=== PATIENT | female | born 1935 | race Caucasian/White ===

== ENCOUNTER 2016-09-03 11:05 | Outpatient (CLI) | payer MEDICARE ==
[2016-09-03 11:29] LABS: BASOPHILS # (AUTO) 0.1 10^3/uL (0.0-0.1); EOSINOPHILS # (AUTO) 0.2 10^3/uL (0.0-0.7); EOSINOPHILS % (AUTO) 3.6 %; HCT - HEMATOCRIT 39.6 % (37.0-47.0); HGB - HEMOGLOBIN 13.2 g/dL (12.0-16.0); LYMPHOCYTES # (AUTO) 2.2 10^3/uL (1.5-3.5); LYMPHOCYTES % (AUTO) 33.4 %; MEAN CORPUSCULAR HEMOGLOBIN 29.1 pg (27.0-31.0); MEAN CORPUSCULAR HGB CONC 33.4 g/dL (32.0-36.0); MEAN CORPUSCULAR VOLUME 87.3 fL (81.0-99.0); MEAN PLATELET VOLUME 8.4 fL (7.9-10.8); MONOCYTES # (AUTO) 0.4 10^3/uL (0.0-1.0); MONOCYTES % (AUTO) 6.8 %; NEUTROPHILS # (AUTO) 3.6 10^3/uL (1.5-6.6); NEUTROPHILS % (AUTO) 55.2 %; RED BLOOD COUNT 4.53 10^6/uL (4.20-5.40); RED CELL DISTRIBUTION WIDTH 13.2 % (12.0-15.0); UNCORRECTED WHITE BLOOD COUNT 6.6 x10^3/uL; WHITE BLOOD COUNT 6.6 x10^3/uL (4.8-10.8)
[2016-09-03 11:41] LABS: ALBUMIN/GLOBULIN RATIO 1.7 (1.0-2.2); BILIRUBIN,TOTAL 0.5 mg/dL (0.2-1.0); CALCIUM 9.7 mg/dL (8.5-10.3); CREATININE 0.8 mg/dL (0.4-1.0); POTASSIUM 4.2 mmol/L (3.5-5.0); TOTAL PROTEIN 6.7 g/dL (6.7-8.2)
[2016-09-03 11:43] LABS: PT - PROTHROMBIN TIME 11.5 secs (9.9-12.6)
[2016-09-03 11:50] LABS: PARTIAL THROMBOPLASTIN TIME 26.5 secs (24.9-33.3)
== END 2016-09-03 11:06 | disposition home or self-care (01) ==
LOC: LAB 11:05
PROVIDERS: ATTEND Physician Assistant Medical
DX: E03.9 Hypothyroidism, unspecified (principal); M17.11 Unilateral primary osteoarthritis, right knee
CPT/HCPCS: 36415; 80053; 84443; 85025; 85610; 85730; 87640

== ENCOUNTER 2016-10-21 06:16 | Inpatient (IN) | payer MEDICARE ==
[2016-10-21] MEDS ORDERED: ceFAZolin 2 GM/50 ML 50 ML IV ONE (06:33)
[2016-10-21] MEDS ORDERED: LACTATED RINGERS 1,000 ML IV ONE (06:51)
[2016-10-21] MEDS ORDERED: TRANEXAMIC ACID 1,000 MG/10 ML VIAL IV ONE (08:10)
[2016-10-21] MEDS ORDERED: fentaNYL 100 MCG/2 ML VIAL IVP ONE (08:10)
[2016-10-21] MEDS ORDERED: ACETAMINOPHEN 1,000 MG/100 ML VIAL IV ONE (08:10)
[2016-10-21] MEDS ORDERED: ONDANSETRON 4 MG/2 ML VIAL IVP ONE (08:10)
[2016-10-21] MEDS ORDERED: DEXAMETHASONE 4 MG/ML VIAL IVP ONE (08:10)
[2016-10-21] MEDS ORDERED: MIDAZOLAM 2 MG/2 ML VIAL IVP ONE (08:10)
[2016-10-21] MEDS ORDERED: PROPOFOL 200 MG/20 ML VIAL IVP ONE (08:10)
[2016-10-21] MEDS ORDERED: KETOROLAC 30 MG/ML VIAL IVP ONE (08:10)
[2016-10-21] MEDS ORDERED: KETOROLAC 15 MG/ML VIAL IVP ONE (08:24)
[2016-10-21] MEDS ORDERED: MORPHINE PF 5 MG/10 ML AMP SUBQ ONE (08:24)
[2016-10-21] MEDS ORDERED: ROPIVACAINE 0.5% PF 20 ML AMPULE SUBQ ONE (08:24)
[2016-10-21] MEDS ORDERED: EPINEPHrine 1 MG/ML AMP IVP ONE (08:24)
[2016-10-21] MEDS ORDERED: BUPIVACAINE 0.5% PF 30 ML VIAL SUBQ ONE (08:24)
--- NOTE | 2016-10-21 09:31 | OPERATIVE REPORT ---
Operative Report - General Admit Date: 10/21/16 Procedure Date: 10/21/16 Planned Procedure: left TKA Pre-Op Diagnosis: Left knee DJD Procedure Performed: Left TKA Post Op Diagnosis: same - Procedure Note Primary Surgeon: Jose L Anesthesia Provider: Sebastian Anesthesia Technique: Spinal Estimated Blood Loss (mL): 25 Drain/Tube Type: Hemovac
[2016-10-21] MEDS: ONDANSETRON 4 MG/2 ML VIAL IVP PRN ×2 (10:58→16:48)
[2016-10-21] MEDS: SODIUM CHLORIDE FLUSH 0.9% 10 ML SYRINGE IVP SCH ×2 (13:27→21:20)
--- NOTE | 2016-10-21 14:16 | OPERATIVE REPORT ---
DATE OF SURGERY: 10/21/2016 00:00:00 PREOPERATIVE DIAGNOSIS: Left knee osteoarthritis. POSTOPERATIVE DIAGNOSIS: Left knee osteoarthritis. NAME OF PROCEDURE: Left total knee replacement arthroplasty. SURGEON: Florencia Domingo MD ANESTHESIA: Spinal by Dr. Cortes. INDICATIONS FOR SURGERY: The patient is a 81-year-old female with progressive, severe osteoarthritis of her left knee who has failed nonoperative treatment and presents for elective total knee arthropla sty. FINDINGS AT SURGERY: The patient's knee had inflammatory effusion. She had osteophytes about the femu r and relatively soft bone. There was degeneration of meniscal tissues and [id number] articulation in the patellofemoral and in the medial compartment spaces. DESCRIPTION OF OPERATIVE PROCEDURE: The patient was taken to the operating room and given a spinal an esthetic, after which she was positioned supine, and a tourniquet was placed high on her left thigh, and her knee and leg were sterilely prepped and draped in standard fashion. Surgical timeout was held , after which the tourniquet was inflated to 300 mmHg. Surgery proceeded with a curved medial incisio n through skin and subcutaneous tissue, exposing the medial retinaculum, which was incised in line wi th the incision. The effusion in the knee was evacuated, and the knee was able to be flexed with the patella everted to the side. The osteophytes were removed with a rongeur, the ACL excised and a drill hole made in the distal femur for insertion of the intramedullary scott and the distal femoral cutting block. The cutting block was utilized to make the initial distal femoral cut, after which sizing was performed, and the femur size was selected at a size 7. The 4-in-1 cutting block was applied, and th e cuts made. The tibia was then exposed, and this was facilitated by complete excision of menisci, me dial and lateral, and by posterior release of the posterior osteophytes. With retractors positioned, the tibia was subluxated anteriorly, and the external alignment tower was assembled and placed on the tibia for placement of a cutting block. A standard cut was made and the femoral piece removed and th e surface templated for a size D natural tibia Persona baseplate with a stem. After preparation of th at surface, a trial reduction was performed, and the proper poly seemed to be most appropriate with a tibial insert of 12 mm, and the patella was prepared by eversion of the patella, initial measuring a nd then cutting down of the patella to apply a 29 mm diameter 8 mm thick medialized patella. All comp onents were removed, and the surfaces were flushed and irrigated thoroughly, and sequential cementing was performed, cementing first the natural tibia, cemented 5 degree stem, size D left tibia baseplat e and then the size 7 left narrow cruciate retaining femur followed by the cementing of the all poly patella and ultimately also insertion of the polyethylene, which was 12 mm in height, medial congruen t, for a size femur 6-7. This yielded a stable knee with good range of motion, tight in both flexion and extension with normal patellar tracking. The knee was flushed thoroughly. Cement had hardened. Ex cess cement removed. A drain was placed superolateral. Closure was with FiberWire in the capsule, fol lowed by 0 Vicryl and 2-0 Vicryl subcuticular and 3-0 Monocryl in the skin. Sterile dressings were ap plied. The patient was placed in a supine position on the hospital bed and taken to the recovery room in stable condition. ESTIMATED BLOOD LOSS: Minimal. COMPLICATIONS: None. SPONGE AND NEEDLE COUNTS: Correct. TOURNIQUET TIME: Was approximately 70 minutes at 300 mmHg. JOB #: [id number] EXT JOB #:[id number]
[2016-10-21] MEDS: ceFAZolin 2 GM/50 ML 50 ML IV SCH ×2 (14:21→21:20)
[2016-10-21] MEDS: SODIUM CHLORIDE FLUSH 0.9% 10 ML SYRINGE IVP PRN ×2 (16:48→19:07)
[2016-10-21] MEDS ORDERED: PROCHLORPERAZINE 10 MG/2 ML VIAL IVP PRN (17:30)
--- NOTE | 2016-10-21 18:23 | XRAY Report ---
TWO-VIEW LEFT KNEE: 10/21/2016 CLINICAL INDICATION: Postop. FINDINGS: Frontal and lateral views of the left knee demonstrate a total knee replacement in place. Subcutaneous gas is seen. Suprapatellar drain is noted. There is no evidence of acute fracture or hardware complication. IMPRESSION: EXPECTED POSTOPERATIVE APPEARANCE OF LEFT KNEE REPLACEMENT. JOB #: [id number] EXT JOB #:[id number]
[2016-10-21] MEDS: SODIUM CHLORIDE 0.45% 1,000 ML IV SCH (21:20)
[2016-10-22] MEDS: SODIUM CHLORIDE 0.45% 1,000 ML IV SCH ×2 (01:21→16:41)
[2016-10-22] MEDS: SODIUM CHLORIDE FLUSH 0.9% 10 ML SYRINGE IVP SCH ×3 (05:07→20:29)
[2016-10-22 05:44] LABS: HCT - HEMATOCRIT 33.6 % (37.0-47.0); HGB - HEMOGLOBIN 11.4 g/dL (12.0-16.0)
[2016-10-22 05:45] LABS: CALCIUM 8.1 mg/dL (8.5-10.3); CREATININE 0.7 mg/dL (0.4-1.0); POTASSIUM 4.1 mmol/L (3.5-5.0)
[2016-10-22] MEDS: oxyCOD/ACETAMIN 5 MG/325 MG TABLET PO PRN ×2 (06:54→14:21)
--- NOTE | 2016-10-22 07:42 | PROVIDER PROGRESS NOTE ---
Subjective - General Admit Date: 10/21/16 Procedure Date: 10/21/16 Post Op Days: 1 Procedure Performed: Left Total Knee Arthroplasty - Review of Systems Wound/Incisions: positive: Dressing dry and intact Objective - Patient Data Reviewed Vital Signs: Yes Vital Signs: Vital Signs x48h Temp Pulse Resp BP Pulse Ox 10/22/16 07:38 37.1 C 68 16 106/60 97 10/22/16 04:51 36.7 C 67 16 110/50 L 96 Weight: Weight 10/20/16 10/21/16 10/22/16 23:59 23:59 23:59 Weight (kg) 66 kg Intake & Output: Intake and Output Totals x24h 10/20/16 10/21/16 10/22/16 23:59 23:59 23:59 Intake Total 2214 785 Output Total 985 440 Balance 1229 345 - Lab Results Lab Results: 10/22/16 05:23 10/22/16 05:23 Other Lab Results: Lab Results x24hrs 10/22/16 10/22/16 10/21/16 Range/Units 05:23 05:23 07:00 Hgb 11.4 L (12.0-16.0) g/dL Hct 33.6 L (37.0-47.0) % Sodium 133 L (135-145) mmol/L Potassium 4.1 (3.5-5.0) mmol/L Chloride 103 (101-111) mmol/L Carbon Dioxide 25 (21-32) mmol/L Anion Gap 5.0 L (6-13) BUN 19 (6-20) mg/dL Creatinine 0.7 (0.4-1.0) mg/dL Estimated GFR (MDRD) 81 L (>89) Glucose 146 H (70-100) mg/dL Calcium 8.1 L (8.5-10.3) mg/dL Blood Type O NEGATIVE Antibody Screen NEGATIVE - Imaging Results Radiology Imaging: positive: EMP read indepedently - Current Medications Current Medications: Current Medications Generic Name Dose Route Start Last Admin Trade Name Freq PRN Reason Stop Dose Admin Sodium Chloride 1,000 mls @ 100 mls/hr 10/21/16 10:00 10/22/16 01:21 Normal Saline 0.45% IV 100 mls/hr .Q10H ANTOINE Administration Ondansetron HCl 4 mg 10/21/16 09:31 10/21/16 16:48 Zofran Inj IVP 4 mg Q6HR PRN Administration Nausea / Vomiting Oxycodone/Acetaminophen 1 tab 10/21/16 09:31 10/22/16 06:54 Percocet 5 Mg/325 Mg PO 1 tab Q4HR PRN Administration PAIN Prochlorperazine Edisylate 10 mg 10/21/16 17:30 10/21/16 19:07 Compazine Inj IVP 10 mg Q6H PRN Administration Nausea / Vomiting Sodium Chloride 10 ml 10/21/16 09:31 10/21/16 19:07 Normal Saline Flush 0.9% IVP 10 ml PRN PRN Administration NEEDED PER PROVIDER ORDERS Sodium Chloride 10 ml 10/21/16 14:00 10/22/16 05:07 Normal Saline Flush 0.9% IVP Not Given Q8HR ANTOINE Impression/Plan - Problem List Problem List: POD #1
[2016-10-22] MEDS: OXYBUTYNIN 5MG TABLET PO SCH ×2 (08:06→20:28)
[2016-10-22] MEDS: LEVOTHYROXINE 125 MCG TABLET PO SCH (08:06)
[2016-10-22] MEDS: HYDROmorphone 1 MG/ML SYRINGE IVP PRN ×2 (08:06→11:27)
[2016-10-22] MEDS: ACETAMINOPHEN 325 MG TABLET PO PRN ×3 (16:36→23:48)
[2016-10-23] MEDS: SODIUM CHLORIDE 0.45% 1,000 ML IV SCH ×3 (02:15→20:08)
[2016-10-23] MEDS: SODIUM CHLORIDE FLUSH 0.9% 10 ML SYRINGE IVP SCH ×3 (06:31→20:06)
--- NOTE | 2016-10-23 07:49 | PROVIDER PROGRESS NOTE ---
Subjective - General Admit Date: 10/21/16 Procedure Date: 10/21/16 Post Op Days: 2 Procedure Performed: Left Total Knee Arthroplasty - Review of Systems Wound/Incisions: positive: Dressing dry and intact General: positive: Fatigue, Appetite Musculoskeletal: positive: Joint pain Objective - Patient Data Reviewed Vital Signs: Yes Vital Signs: Vital Signs x48h Temp Pulse Resp BP Pulse Ox 10/23/16 07:43 36.9 C 66 16 150/55 H 94 10/23/16 05:35 36.8 C 65 17 162/61 H 94 10/23/16 01:26 37.1 C 74 16 134/56 H 95 Weight: Weight 10/21/16 10/22/16 10/23/16 23:59 23:59 23:59 Weight (kg) 66 kg Intake & Output: Intake and Output Totals x24h 10/21/16 10/22/16 10/23/16 23:59 23:59 23:59 Intake Total 2214 2871 847 Output Total 985 690 500 Balance 1229 2181 347 - Lab Results Lab Results: 10/22/16 05:23 10/22/16 05:23 - Current Medications Current Medications: Current Medications Generic Name Dose Route Start Last Admin Trade Name Freq PRN Reason Stop Dose Admin Acetaminophen 650 - 975 mg 10/21/16 09:31 10/22/16 23:48 Tylenol PO 975 mg Q4HR PRN Administration PAIN Hydromorphone HCl 1 mg 10/21/16 09:31 10/22/16 11:27 Dilaudid Inj IVP 1 mg Q2HR PRN Administration Breakthrough Pain Sodium Chloride 1,000 mls @ 100 mls/hr 10/21/16 10:00 10/23/16 02:15 Normal Saline 0.45% IV 100 mls/hr .Q10H ANTOINE Administration Levothyroxine Sodium 125 mcg 10/22/16 09:00 10/22/16 08:06 Synthroid PO 125 mcg DAILY ANTOINE Administration Ondansetron HCl 4 mg 10/21/16 09:31 10/21/16 16:48 Zofran Inj IVP 4 mg Q6HR PRN Administration Nausea / Vomiting Oxybutynin Chloride 5 mg 10/22/16 09:00 10/22/16 20:28 Ditropan PO 5 mg BID ANTOINE Administration Oxycodone/Acetaminophen 1 tab 10/21/16 09:31 10/22/16 14:21 Percocet 5 Mg/325 Mg PO 1 tab Q4HR PRN Administration PAIN Prochlorperazine Edisylate 10 mg 10/21/16 17:30 10/21/16 19:07 Compazine Inj IVP 10 mg Q6H PRN Administration Nausea / Vomiting Sodium Chloride 10 ml 10/21/16 09:31 10/21/16 19:07 Normal Saline Flush 0.9% IVP 10 ml PRN PRN Administration NEEDED PER PROVIDER ORDERS Sodium Chloride 10 ml 10/21/16 14:00 10/23/16 06:31 Normal Saline Flush 0.9% IVP Not Given Q8HR ANTOINE - Physical Exam Wound/Incisions: positive: Healing well, Dressing dry and intact General Appearance: positive: No acute distress Extremities: positive: Joint swelling Neurologic/Psychiatric: positive: Motor nml, Sensation nml, Mood/affect nml Impression/Plan - Problem List Problem List: POD #2 pain is as expected. Pt will continue with PT.
[2016-10-23] MEDS: POLYETHYLENE GLYCOL 3350 17 GM PACKET PO SCH (08:28)
[2016-10-23] MEDS: ACETAMINOPHEN 325 MG TABLET PO PRN ×2 (08:29→18:30)
[2016-10-23] MEDS: OXYBUTYNIN 5MG TABLET PO SCH ×2 (08:31→20:06)
[2016-10-23] MEDS: ENOXAPARIN 40 MG/0.4 ML SYRINGE SUBQ SCH ×2 (08:31→09:58)
[2016-10-23] MEDS: LEVOTHYROXINE 125 MCG TABLET PO SCH (08:31)
[2016-10-23] MEDS ORDERED: DOCUSATE SODIUM 250 MG CAPSULE PO SCH (17:00)
[2016-10-23] MEDS ORDERED: SENNA 8.6 MG TABLET PO SCH (17:00)
[2016-10-24] MEDS: ACETAMINOPHEN 325 MG TABLET PO PRN (03:50)
[2016-10-24] MEDS: SODIUM CHLORIDE FLUSH 0.9% 10 ML SYRINGE IVP SCH (05:26)
[2016-10-24 05:53] LABS: HCT - HEMATOCRIT 32.7 % (37.0-47.0); MEAN CORPUSCULAR HEMOGLOBIN 29.1 pg (27.0-31.0); MEAN CORPUSCULAR HGB CONC 33.7 g/dL (32.0-36.0); MEAN CORPUSCULAR VOLUME 86.4 fL (81.0-99.0); MEAN PLATELET VOLUME 9.1 fL (7.9-10.8); RED BLOOD COUNT 3.79 10^6/uL (4.20-5.40); RED CELL DISTRIBUTION WIDTH 12.9 % (12.0-15.0); WHITE BLOOD COUNT 8.1 x10^3/uL (4.8-10.8)
--- NOTE | 2016-10-24 06:39 | Discharge Plan ---
Discharge Plan Disposition: Home, Self Care Condition: Good Prescriptions: oxyCODONE/ACET 5/325 [Percocet 5 mg/325 mg] 1 tab PO Q4HR PRN #20 tablet PRN Reason: Pain Acetaminophen [Tylenol] 650 - 975 mg PO Q4HR PRN #100 tablet PRN Reason: Pain Enoxaparin [Lovenox] 40 mg SUBQ DAILY #10 syringe Senna [Senokot] 8.6 - 17.2 mg PO ONCE #14 tablet Diet: Regular Activity Restrictions: Wt Bearing as Tolerated Shower Restrictions: Yes (covered knee wound) Driving Restrictions: Yes (no driving) Assistance Devices: Walker Weight Bearing: as tolerated with walker Follow-Up Care: Outpatient Rehab - PT No Smoking: If you smoke, Please STOP! Call for help. Follow-up with: Sahra Li PA-C [Primary Care Provider] - Florencia Domingo MD [Provider Admit Priv/Credential] -
--- NOTE | 2016-10-24 06:42 | PROVIDER PROGRESS NOTE ---
Subjective - General Admit Date: 10/21/16 Procedure Date: 10/21/16 Post Op Days: 3 Procedure Performed: Left Total Knee Arthroplasty - Review of Systems Wound/Incisions: positive: Healing well, Dressing dry and intact Musculoskeletal: positive: Joint pain Objective - Patient Data Reviewed Vital Signs: Yes Vital Signs: Vital Signs x48h Temp Pulse Resp BP Pulse Ox 10/24/16 05:29 36.7 C 72 18 132/54 H 95 10/23/16 23:35 37.0 C 67 16 138/64 H 95 Intake & Output: Intake and Output Totals x24h 10/22/16 10/23/16 10/24/16 23:59 23:59 23:59 Intake Total 2871 2238 780 Output Total 690 1650 200 Balance 2181 588 580 - Lab Results Lab Results: 10/24/16 05:24 10/22/16 05:23 Other Lab Results: Lab Results x24hrs 10/24/16 Range/Units 05:24 WBC 8.1 (4.8-10.8) x10^3/uL RBC 3.79 L (4.20-5.40) 10^6/uL Hgb 11.0 L (12.0-16.0) g/dL Hct 32.7 L (37.0-47.0) % MCV 86.4 (81.0-99.0) fL MCH 29.1 (27.0-31.0) pg MCHC 33.7 (32.0-36.0) g/dL RDW 12.9 (12.0-15.0) % Plt Count 178 (130-450) 10^3/uL MPV 9.1 (7.9-10.8) fL - Current Medications Current Medications: Current Medications Generic Name Dose Route Start Last Admin Trade Name Freq PRN Reason Stop Dose Admin Acetaminophen 650 - 975 mg 10/21/16 09:31 10/24/16 03:50 Tylenol PO 650 mg Q4HR PRN Administration PAIN Enoxaparin Sodium 40 mg 10/23/16 08:00 10/23/16 09:58 Lovenox SUBQ 40 mg DAILY ANTOINE Administration Hydromorphone HCl 1 mg 10/21/16 09:31 10/22/16 11:27 Dilaudid Inj IVP 1 mg Q2HR PRN Administration Breakthrough Pain Sodium Chloride 1,000 mls @ 100 mls/hr 10/21/16 10:00 10/23/16 20:08 Normal Saline 0.45% IV Not Given .Q10H ANTOINE Levothyroxine Sodium 125 mcg 10/22/16 09:00 10/23/16 08:31 Synthroid PO 125 mcg DAILY ANTOINE Administration Ondansetron HCl 4 mg 10/21/16 09:31 10/21/16 16:48 Zofran Inj IVP 4 mg Q6HR PRN Administration Nausea / Vomiting Oxybutynin Chloride 5 mg 10/22/16 09:00 10/23/16 20:06 Ditropan PO 5 mg BID ANTOINE Administration Oxycodone/Acetaminophen 1 tab 10/21/16 09:31 10/22/16 14:21 Percocet 5 Mg/325 Mg PO 1 tab Q4HR PRN Administration PAIN Polyethylene Glycol 17 gm 10/23/16 09:00 10/23/16 08:28 Miralax PO 17 gm DAILY ANTOINE Administration Prochlorperazine Edisylate 10 mg 10/21/16 17:30 10/21/16 19:07 Compazine Inj IVP 10 mg Q6H PRN Administration Nausea / Vomiting Sodium Chloride 10 ml 10/21/16 09:31 10/21/16 19:07 Normal Saline Flush 0.9% IVP 10 ml PRN PRN Administration NEEDED PER PROVIDER ORDERS Sodium Chloride 10 ml 10/21/16 14:00 10/24/16 05:26 Normal Saline Flush 0.9% IVP 10 ml Q8HR ANTOINE Administration - Physical Exam Wound/Incisions: positive: Healing well Extremities: positive: Joint swelling Neurologic/Psychiatric: positive: Motor nml, Sensation nml, Mood/affect nml Impression/Plan - Problem List Problem List: POD #3 Pt is doing well with pain control (Tylenol) and therapy. plan to d/c to home with f/u in office next week. Discussed wound care with new dressing applied and to be left alone.
[2016-10-24 08:43] VITALS: BP 131/59
[2016-10-24] MEDS: OXYBUTYNIN 5MG TABLET PO SCH (08:56)
[2016-10-24] MEDS: ENOXAPARIN 40 MG/0.4 ML SYRINGE SUBQ SCH (08:57)
[2016-10-24] MEDS: LEVOTHYROXINE 125 MCG TABLET PO SCH (08:57)
[2016-10-24] MEDS: POLYETHYLENE GLYCOL 3350 17 GM PACKET PO SCH (08:57)
[2016-10-24] MEDS ORDERED: DOCUSATE SODIUM 250 MG CAPSULE PO SCH (09:00)
[2016-10-24] MEDS ORDERED: SENNA 8.6 MG TABLET PO SCH (09:00)
--- NOTE | 2016-10-30 13:04 | DISCHARGE SUMMARY ---
DATE OF ADMISSION: 10/21/2016 DATE OF DISCHARGE: 10/24/2016 ADMISSION DIAGNOSIS: Left knee degenerative arthritis. OPERATIVE PROCEDURE: Was 10/21/2016, a left total knee replacement arthroplasty. REASON FOR ADMISSION: The patient is a 81-year-old female with end-stage osteoarthritis of her left k nee, who presents for total knee arthroplasty. The patient has failed nonoperative treatment. The alpesh coffman's prior medical history is documented in her admit note. HOSPITAL COURSE: The patient was admitted and underwent surgery on 10/21/2016, which was well tolerat ed. In the postoperative period, she was placed on the med/surg floor receiving IV antibiotics and pa in medication, as well as early physical therapy. The patient progressed well over the following days and at the time of discharge was able to be discharged to home with self-care and return visit in my office within 1 week. DISCHARGE MEDICATIONS To be 1. Senna. 2. Lovenox. 3. Oxycodone. She had a silver containing dressing that was to remain in place on the anterior aspect of her knee. She had been instructed in range of motion exercises for the knee. JOB #: [id number] EXT JOB #:[id number]
== END 2016-10-24 11:03 | disposition home or self-care (01) | DRG 470 ==
LOC: MS2 06:16
PROVIDERS: ADMIT Orthopaedic Surgery; ATTEND Orthopaedic Surgery
PROC: 0SRD0J9 Replacement of Left Knee Joint with Synthetic Substitute, Cemented, Open Approach (ICD-10-PCS; principal; 2016-10-21 07:30)
DX: M17.12 Unilateral primary osteoarthritis, left knee (principal); K21.9 Gastro-esophageal reflux disease without esophagitis; E78.5 Hyperlipidemia, unspecified; E03.9 Hypothyroidism, unspecified; Z87.440 Personal history of urinary (tract) infections
CPT/HCPCS: 36415; 80048; 85014; 85018; 86850; 86900; 86901

== ENCOUNTER 2016-12-08 09:46 | Outpatient (CLI) | payer MEDICARE ==
--- NOTE | 2016-12-08 11:31 | Ultrasound Report ---
PELVIC ULTRASOUND: 12/08/2016 CLINICAL INDICATION: Followup right ovarian cyst. TECHNIQUE: Transabdominal pelvic ultrasound performed for global evaluation. Transvaginal pelvic ult rasound performed for detailed evaluation. Real-time scanning performed and static images obtained. COMPARISON: 10/27/2013 FINDINGS: The right ovary measures 2.7 x 2.5 x 2.4 cm, and again contains a simple cyst, measuring 2 .1 x 2.1 x 1.9 cm (previously 2.2 x 1.9 x 1.9 cm). The left ovary was not confidently identified on transabdominal or transvaginal imaging, but no left adnexal lesion is seen. The uterus is surgically absent. No free fluid is present. IMPRESSION: STABLE SIMPLE RIGHT OVARIAN CYST. JOB #: [id number] EXT JOB #:[id number]
== END 2016-12-08 09:47 | disposition home or self-care (01) ==
LOC: DI 09:46
PROVIDERS: ATTEND Physician Assistant Medical
DX: N83.291 Other ovarian cyst, right side (principal)
CPT/HCPCS: 76830; 76856

== ENCOUNTER 2017-12-10 14:50 | Outpatient (CLI) | payer MEDICARE ==
--- NOTE | 2017-12-11 15:16 | XRAY Report ---
Reason: COCCYDYNIA FROM FALL Procedure Date: 12/10/2017 Accession Number: [id number] / [id number] Procedure: XR - Sacrum/Coccyx CPT Code: FULL RESULT: EXAM: SACRUM AND COCCYX RADIOGRAPHY EXAM DATE: 12/10/2017 03:15 PM HISTORY: COMMENTS: Fall 2-3 weeks ago, sacral pain. : No PRIORS: None. COMPARISON: NONE TECHNIQUE: 3 views FINDINGS: There is some mild cortical irregularity at the S5 level which could potentially be a subacute fracture. No gabi displacement noted. Unremarkable coccyx. Sacral alae are grossly intact. 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 There is also mild to moderate bilateral SI joint degenerative arthritis. IMPRESSION: Question of a nondisplaced fracture at the S5 segment. Degenerative changes as noted. RADIA
== END 2017-12-10 14:51 | disposition home or self-care (01) ==
LOC: DI 14:50
PROVIDERS: ATTEND Physician Assistant Medical
DX: M53.3 Sacrococcygeal disorders, not elsewhere classified (principal); M47.818 Spondylosis without myelopathy or radiculopathy, sacral and sacrococcygeal region
CPT/HCPCS: 72220

== ENCOUNTER 2017-12-11 09:47 | Outpatient (CLI) | payer MEDICARE ==
[2017-12-11 17:37] LABS: BASOPHILS # (AUTO) 0.1 10^3/uL (0.0-0.1); BASOPHILS % (AUTO) 0.9 %; EOSINOPHILS # (AUTO) 0.2 10^3/uL (0.0-0.7); EOSINOPHILS % (AUTO) 3.6 %; HGB - HEMOGLOBIN 13.2 g/dL (12.0-16.0); LYMPHOCYTES % (AUTO) 35.3 %; MEAN CORPUSCULAR HEMOGLOBIN 28.8 pg (27.0-31.0); MEAN CORPUSCULAR HGB CONC 33.1 g/dL (32.0-36.0); MEAN CORPUSCULAR VOLUME 86.9 fL (81.0-99.0); MEAN PLATELET VOLUME 8.9 fL (7.9-10.8); MONOCYTES # (AUTO) 0.3 10^3/uL (0.0-1.0); MONOCYTES % (AUTO) 6.1 %; NEUTROPHILS % (AUTO) 54.1 %; PLT - PLATELET COUNT 223 10^3/uL (130-450); RED BLOOD COUNT 4.57 10^6/uL (4.20-5.40); RED CELL DISTRIBUTION WIDTH 13.8 % (12.0-15.0); WHITE BLOOD COUNT 5.5 x10^3/uL (4.8-10.8)
[2017-12-11 18:09] LABS: ALBUMIN 3.9 g/dL (3.2-5.5); ALBUMIN/GLOBULIN RATIO 1.8 (1.0-2.2); ALKALINE PHOSPHATASE 70 IU/L (42-121); ALT ALANINE AMINOTRANSFERASE 17 IU/L (10-60); AST ASPARTATE AMINOTRANSFERASE 30 IU/L (10-42); BILIRUBIN,TOTAL 0.7 mg/dL (0.2-1.0); BUN - BLOOD UREA NITROGEN 16 mg/dL (6-20); CALCIUM 9.1 mg/dL (8.5-10.3); CARBON DIOXIDE - CO2 27 mmol/L (21-32); CHLORIDE 105 mmol/L (101-111); CHOL/HDL RATIO 4.1 (<4.4); CHOLESTEROL 219 mg/dL; CREATININE 0.7 mg/dL (0.4-1.0); GFR - MDRD 81 (>89); GLUCOSE 96 mg/dL (70-100); HDL CHOLESTEROL 53 mg/dL; LDL CHOLESTEROL,CALCULATED 145 mg/dL; LDL/HDL RATIO 2.7 (<4.4); SODIUM 139 mmol/L (135-145); TOTAL PROTEIN 6.1 g/dL (6.7-8.2); VLDL CHOLESTEROL 21 mg/dL
[2017-12-11 18:11] LABS: THYROID STIMULATING HORMONE 1.85 uIU/mL (0.34-5.60)
== END 2017-12-11 09:48 | disposition home or self-care (01) ==
LOC: LAB.F 09:47
PROVIDERS: ATTEND Physician Assistant Medical
DX: Z79.899 Other long term (current) drug therapy (principal); E78.2 Mixed hyperlipidemia; M17.0 Bilateral primary osteoarthritis of knee; E03.9 Hypothyroidism, unspecified; R41.81 Age-related cognitive decline
CPT/HCPCS: 36415; 80053; 80061; 82607; 83721; 84443; 85025

== ENCOUNTER 2019-09-08 10:16 | Outpatient (CLI) | payer MEDICARE ==
[2019-09-08 15:30] LABS: CALCIUM 9.4 mg/dL (8.5-10.3); CREATININE 0.8 mg/dL (0.4-1.0)
[2019-09-08 16:54] LABS: FREE T4 (FREE THYROXINE) 1.11 ng/dL (0.58-1.64)
== END 2019-09-08 10:17 | disposition home or self-care (01) ==
LOC: LAB.S 10:16
PROVIDERS: ATTEND Internal Medicine
DX: E03.9 Hypothyroidism, unspecified (principal)
CPT/HCPCS: 36415; 80048; 84439; 84443

== ENCOUNTER 2019-10-26 11:00 | Outpatient (CLI) | payer MEDICARE | END 2019-10-26 11:01 | disposition home or self-care (01) | LOC: LAB.S 11:00 | PROVIDERS: ATTEND Internal Medicine | DX: E03.9 Hypothyroidism, unspecified (principal) | CPT/HCPCS: 36415; 84443 ==

== ENCOUNTER 2020-01-31 12:56 | Outpatient (CLI) | payer MEDICARE | END 2020-01-31 12:57 | disposition short-term general hospital (02) | LOC: EMS 12:56 | PROVIDERS: ATTEND Surgery | DX: R55 Syncope and collapse (principal) | CPT/HCPCS: A0425; A0427 ==

== ENCOUNTER 2020-06-11 15:35 | Emergency (ER) | payer MEDICARE ==
[2020-06-11] MEDS ORDERED: MECLIZINE 12.5 MG TABLET PO STA (15:58)
--- NOTE | 2020-06-11 15:58 | ED Physician Documentation ---
History of Present Illness - Stated complaint Stated Complaint: DIZZINESS - Chief complaint Chief Complaint: General - History obtained from History obtained from: Patient - Additonal information Additional information: This 84-year-old woman had a cardiac arrest on January 31. She was hospitalized in [place] and a pacemaker was placed. Ever since then she has had intermittent vertigo. She describes it as a pulsing and spinning sensation especially when she gets up or changes positions. It is better if she keeps her eyes closed. Its not associated with weakness, numbness, tingling, diplopia, or headache. Prior to the arrest she had never had vertigo. 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 Cardiovascular: Pacemaker HEENT: Cataracts - Present Medications Home Medications: Ambulatory Orders Medication Instructions Recorded Confirmed Levothyroxine [Synthroid] 125 mcg PO DAILY 11/21/15 06/11/20 Oxybutynin [Ditropan] 5 mg PO BID 11/21/15 06/11/20 Acetaminophen [Tylenol] 650 - 975 mg PO Q4HR PRN #100 10/24/16 06/11/20 tablet Enoxaparin [Lovenox] 40 mg SUBQ DAILY #10 syringe 10/24/16 06/11/20 Senna [Senokot] 8.6 - 17.2 mg PO ONCE #14 tablet 10/24/16 06/11/20 Meclizine [Antivert] 12.5 mg PO Q6H PRN #20 tablet 06/11/20 - Allergies Allergies/Adverse Reactions: Allergies Allergy/AdvReac Type Severity Reaction Status Date / Time aspirin Allergy Emesis Verified 06/11/20 15:39 - Social History Does the pt smoke?: No Smoking Status: Never smoker Does the pt drink ETOH?: Yes ETOH Use: Wine Does the pt have substance abuse?: No - Immunizations Immunizations are current?: Yes - POLST Patient has POLST: No PD ED PE NORMAL - Vitals Vital signs reviewed: Yes - General General: Alert and oriented X 3, No acute distress - HEENT HEENT: PERRL, EOMI (No nystagmus) - Neck Neck: Supple, no meningeal sign, No bony TTP - Cardiac Cardiac: RRR, No murmur - Respiratory Respiratory: No respiratory distress, Clear bilaterally - Abdomen Abdomen: Non tender - Derm Derm: Normal color, Warm and dry - Extremities Extremities: No edema, No calf tenderness / cord - Neuro Neuro: Alert and oriented X 3, No motor deficit, No sensory deficit, Normal speech, Other (No ataxia on [id number] or [id number] testing) Results - Vitals Vitals: Vital Signs - 24 hr 06/11/20 06/11/20 06/11/20 15:39 15:57 16:34 Temperature 36.5 C Heart Rate 64 65 67 Respiratory 16 21 25 H Rate Blood Pressure 177/64 H 145/96 H 135/65 H O2 Saturation 99 99 99 Oxygen O2 Source Room air - EKG (time done) 1550 Rate: Rate (enter#) (74) Rhythm: Paced (Atrial sensed ventricular paced rhythm) - Labs Labs: Laboratory Tests 06/11/20 06/11/20 06/11/20 15:59 15:59 15:59 WBC 7.5 RBC 4.56 Hgb 12.9 Hct 40.4 MCV 88.6 MCH 28.3 MCHC 31.9 L RDW 13.9 Plt Count 232 MPV 10.0 Neut # (Auto) 4.1 Lymph # (Auto) 2.5 [place] # (Auto) 0.6 Eos # (Auto) 0.3 Baso # (Auto) 0.1 Absolute Nucleated RBC 0.00 Nucleated RBC % 0.0 Sodium 136 Potassium 3.7 Chloride 105 Carbon Dioxide 23 Anion Gap 8.0 BUN 17 Creatinine 0.8 Estimated GFR (MDRD) 69 L Glucose 88 Calcium 9.1 Magnesium 2.1 Total Bilirubin 0.8 AST 24 ALT 14 Alkaline Phosphatase 68 Troponin I High Sens 5.5 B-Natriuretic Peptide Total Protein 6.4 L Albumin 4.3 Globulin 2.1 Albumin/Globulin Ratio 2.0 06/11/20 15:59 WBC RBC Hgb Hct MCV MCH MCHC RDW Plt Count MPV Neut # (Auto) Lymph # (Auto) [place] # (Auto) Eos # (Auto) Baso # (Auto) Absolute Nucleated RBC Nucleated RBC % Sodium Potassium Chloride Carbon Dioxide Anion Gap BUN Creatinine Estimated GFR (MDRD) Glucose Calcium Magnesium Total Bilirubin AST ALT Alkaline Phosphatase Troponin I High Sens B-Natriuretic Peptide 74 Total Protein Albumin Globulin Albumin/Globulin Ratio PD MEDICAL DECISION MAKING - ED course ED course: She has had on and off mostly peripheral sounding vertigo ever since cardiac arrest few months ago. No evidence of stroke on CT, her vertigo got much better with the administration of oral meclizine here. Departure - Departure Disposition: 01 Home, Self Care Clinical Impression: Vertigo Condition: Good Record reviewed to determine appropriate education?: Yes Instructions: ED Vertigo Unspecified Prescriptions: Meclizine [Antivert] 12.5 mg PO Q6H PRN #20 tablet PRN Reason: Dizziness Comments: Follow-up with your primary care physician, discuss further evaluation and treatment if symptoms are persistent. Return if worsening.
[2020-06-11 16:06] LABS: BASOPHILS # (AUTO) 0.1 10^3/uL (0.0-0.1); BASOPHILS % (AUTO) 0.7 %; EOSINOPHILS # (AUTO) 0.3 10^3/uL (0.0-0.7); EOSINOPHILS % (AUTO) 3.6 %; HCT - HEMATOCRIT 40.4 % (37.0-47.0); HGB - HEMOGLOBIN 12.9 g/dL (12.0-16.0); LYMPHOCYTES # (AUTO) 2.5 10^3/uL (1.5-3.5); LYMPHOCYTES % (AUTO) 33.7 %; MEAN CORPUSCULAR HEMOGLOBIN 28.3 pg (27.0-31.0); MEAN CORPUSCULAR HGB CONC 31.9 g/dL (32.0-36.0); MEAN CORPUSCULAR VOLUME 88.6 fL (81.0-99.0); MONOCYTES # (AUTO) 0.6 10^3/uL (0.0-1.0); MONOCYTES % (AUTO) 7.4 %; NEUTROPHILS # (AUTO) 4.1 10^3/uL (1.5-6.6); NEUTROPHILS % (AUTO) 54.3 %; PLT - PLATELET COUNT 232 10^3/uL (130-450); RED BLOOD COUNT 4.56 10^6/uL (4.20-5.40); RED CELL DISTRIBUTION WIDTH 13.9 % (12.0-15.0); WHITE BLOOD COUNT 7.5 x10^3/uL (4.8-10.8)
[2020-06-11 16:17] LABS: ALBUMIN 4.3 g/dL (3.2-5.5); BILIRUBIN,TOTAL 0.8 mg/dL (0.2-1.0); CALCIUM 9.1 mg/dL (8.5-10.3); CREATININE 0.8 mg/dL (0.4-1.0); MAGNESIUM 2.1 mg/dL (1.7-2.8); POTASSIUM 3.7 mmol/L (3.5-5.0); TOTAL PROTEIN 6.4 g/dL (6.7-8.2)
--- NOTE | 2020-06-11 16:28 | CT Report ---
PROCEDURE: HEAD WO INDICATIONS: vertigo p arrest TECHNIQUE: Noncontrast 4.5 mm thick angled axial sections acquired from the foramen magnum to the vertex. For r adiation dose reduction, the following was used: automated exposure control, adjustment of mA and/or kV according to patient size. COMPARISON: None. FINDINGS: Image quality: Excellent. CSF spaces: Basal cisterns are patent. No extra-axial fluid collections. Ventricles are normal in size and shape. Brain: No midline shift. No intracranial masses or hemorrhage. [place]-white matter interface is norm al. Skull and face: Calvarium and visualized facial bones are intact, without suspicious lesions. Sinuses: Visualized sinuses and mastoids are clear. IMPRESSION: No acute intracranial disease process. Reviewed by: Neva Huang MD, PhD on 06/11/2020 4:27 PM PDT Approved by: Neva Huang MD, PhD on 06/11/2020 4:27 PM PDT Station ID: [id number]
[2020-06-11 16:54] VITALS: BP 140/79
== END 2020-06-11 17:05 | disposition home or self-care (01) ==
LOC: ED 15:35
DX: R42 Dizziness and giddiness (principal); E03.9 Hypothyroidism, unspecified; Z95.0 Presence of cardiac pacemaker; Z79.899 Other long term (current) drug therapy
CPT/HCPCS: 36415; 70450; 80053; 83735; 83880; 84484; 85025; 93005; 99284; A9270

== ENCOUNTER 2020-10-04 13:18 | Outpatient (CLI) | payer MEDICARE ==
[2020-10-04 14:12] LABS: CREATININE 0.7 mg/dL (0.4-1.0)
[2020-10-04] MEDS ORDERED: IOPAMIDOL-300 100 ML VIAL ONE (15:06)
--- NOTE | 2020-10-04 15:48 | CT Report ---
PROCEDURE: ANGIO HEAD W/WO INDICATIONS: VERTIGO CONTRAST: IV CONTRAST: Isovue 300 ml: 80 PO CONTRAST: *NO PO CONTRAST TECHNIQUE: Precontrast 4.5 mm thick angled axial sections acquired from the foramen magnum to the vertex. Afte r the administration of intravenous contrast, 1 mm thick sections acquired through the [place] is. Postcontrast 4.5 mm thick sections then re-acquired from the foramen magnum to the vertex. 3-di mensional itfxvjb-blubcuvwx-schezbdxcp (MIP) and/or volume rendering reformats were acquired of the c entral intracranial vasculature. For radiation dose reduction, the following was used: automated ex posure control, adjustment of mA and/or kV according to patient size. COMPARISON: Correlation is made with prior noncontrast head CT, 06/11/2020. Correlation is also made with the accompanying neck CT angiogram, 10/04/2020. FINDINGS: Image quality: Excellent. Anterior circulation: Intracranial internal carotid arteries are normal in size and flow. Note is m aryan of a hypoplastic right A1 segment, with a correspondingly robust left A1 segment. This is conside red to be a developmental variant of no clinical consequence. The flow within the paired anterior ce rebral arteries is otherwise normal and symmetric. The flow within the middle cerebral arteries is n ormal and symmetric. The anterior communicating artery is seen. No aneurysms are seen. Posterior circulation: Bilateral type origins of the posterior cerebral arteries can be seen, with an associated hypoplastic basilar artery. The distal vertebral arteries are within normal limits . No aneurysms are seen. CSF spaces: Ventricles are normal in size and shape. Basal cisterns are patent. No extra-axial flu id collections. Brain: No midline shift. No intracranial bleeds or masses. Catalan-white matter interface appears int act. Skull and face: Calvarium and facial bones appear intact, without suspicious lesions. Sinuses: Visualized sinuses and mastoids are clear. IMPRESSION: No imaging explanation is found for the patient's presenting symptoms. No masses or abnormal enhancement can be seen. [place] developmental anomalies are incidentally noted, which are not considered to be clini marily significant. Reviewed by: James Celaya MD on 10/04/2020 2:46 PM [facility] Approved by: James Celaya MD on 10/04/2020 2:46 PM [facility] Station ID: [id number]
--- NOTE | 2020-10-04 15:51 | CT Report ---
PROCEDURE: ANGIO NECK W INDICATIONS: VERTIGO CONTRAST: IV CONTRAST: Isovue 300 ml: 80 PO CONTRAST: *NO PO CONTRAST TECHNIQUE: After the administration of intravenous contrast, 1.5 mm axial sections acquired from the aortic arch to the [place]. Coronal 3-D maximum intensity projection (MIP) and/or volume rendering ref ormats were then performed. For radiation dose reduction, the following was used: automated exposur e control, adjustment of mA and/or kV according to patient size. COMPARISON: Correlation is made with the accompanying head CT angiogram, 10/04/2020. FINDINGS: Image quality: There is streak artifact seen to the level of the shoulders. Carotid system: The great vessels demonstrate a conventional anatomy as they arise from the aortic a rch. The origins of the common carotid arteries appear patent. The common carotid arteries demonstr ate normal calibers and courses. There is a focal calcification and irregularity seen involving the r ight proximal internal carotid artery, with 40-50% luminal narrowing. No stenosis can be seen involvi ng the left proximal internal carotid artery. The more distal internal carotid arteries demonstrate n ormal course and caliber. No findings of dissection are seen. Posterior circulation: The origins of the vertebral arteries appear patent. The more superior porti ons of the vertebral arteries demonstrate normal course and caliber. The distal left vertebral arter y largely terminates in the left posterior inferior cerebellar artery. A dissection is not seen. Soft tissues: Visualized neck soft tissues demonstrate no suspicious abnormalities. The thyroid is normal in size and there are no incidental findings. Bones: No suspicious bony lesions. Visualized cervical spine appears normally aligned. Moderate l ower cervical spine degenerative changes are seen. IMPRESSION: No hemodynamically significant stenosis can be seen within the arteries of the neck. However, there is 40% luminal narrowing seen involving the right proximal internal carotid artery. No findings of dissection can be seen. The estimate of stenosis included in the report of the imaging study was calculated using the NASCET method Reviewed by: James Celaya MD on 10/04/2020 2:50 PM [facility] Approved by: James Celaya MD on 10/04/2020 2:50 PM [facility] Station ID: [id number]
[2020-10-04] MEDS ORDERED: IOPAMIDOL-300 100 ML VIAL IVP ONE (18:40)
== END 2020-10-04 13:19 | disposition home or self-care (01) ==
LOC: LAB 13:18
PROVIDERS: ATTEND Internal Medicine
DX: Z01.812 Encounter for preprocedural laboratory examination (principal); R42 Dizziness and giddiness; I65.21 Occlusion and stenosis of right carotid artery
CPT/HCPCS: 36415; 70496; 70498; 82565; Q9967

== ENCOUNTER 2020-10-05 07:58 | Outpatient (CLI) | payer MEDICARE ==
[2020-10-05 14:26] LABS: BASOPHILS # (AUTO) 0.1 10^3/uL (0.0-0.1); BASOPHILS % (AUTO) 1.2 %; EOSINOPHILS # (AUTO) 0.2 10^3/uL (0.0-0.7); EOSINOPHILS % (AUTO) 3.9 %; HCT - HEMATOCRIT 40.8 % (37.0-47.0); LYMPHOCYTES # (AUTO) 1.9 10^3/uL (1.5-3.5); MEAN CORPUSCULAR HEMOGLOBIN 29.1 pg (27.0-31.0); MEAN CORPUSCULAR HGB CONC 31.9 g/dL (32.0-36.0); MEAN CORPUSCULAR VOLUME 91.5 fL (81.0-99.0); MONOCYTES # (AUTO) 0.5 10^3/uL (0.0-1.0); MONOCYTES % (AUTO) 8.4 %; NEUTROPHILS # (AUTO) 3.2 10^3/uL (1.5-6.6); NEUTROPHILS % (AUTO) 54.3 %; PLT - PLATELET COUNT 216 10^3/uL (130-450); RED BLOOD COUNT 4.46 10^6/uL (4.20-5.40); RED CELL DISTRIBUTION WIDTH 13.2 % (12.0-15.0); WHITE BLOOD COUNT 5.8 x10^3/uL (4.8-10.8)
[2020-10-05 14:44] LABS: ALBUMIN 4.3 g/dL (3.2-5.5); ALBUMIN/GLOBULIN RATIO 2.2 (1.0-2.2); ALKALINE PHOSPHATASE 56 IU/L (42-121); ALT ALANINE AMINOTRANSFERASE 14 IU/L (10-60); AST ASPARTATE AMINOTRANSFERASE 28 IU/L (10-42); BILIRUBIN,TOTAL 0.7 mg/dL (0.2-1.0); BUN - BLOOD UREA NITROGEN 15 mg/dL (6-20); CALCIUM 9.5 mg/dL (8.5-10.3); CARBON DIOXIDE - CO2 26 mmol/L (21-32); CHLORIDE 106 mmol/L (101-111); CHOL/HDL RATIO 3.7 (<4.4); CHOLESTEROL 239 mg/dL; CREATININE 0.7 mg/dL (0.4-1.0); GFR - MDRD 80 (>89); GLUCOSE 97 mg/dL (70-100); HDL CHOLESTEROL 64 mg/dL; LDL CHOLESTEROL,CALCULATED 155 mg/dL; LDL/HDL RATIO 2.4 (<4.4); POTASSIUM 4.3 mmol/L (3.5-5.0); SODIUM 141 mmol/L (135-145); TOTAL PROTEIN 6.3 g/dL (6.7-8.2); TRIGLYCERIDES 99 mg/dL; VLDL CHOLESTEROL 20 mg/dL
[2020-10-05 14:55] LABS: THYROID STIMULATING HORMONE 2.98 uIU/mL (0.34-5.60)
== END 2020-10-05 07:59 | disposition home or self-care (01) ==
LOC: LAB.S 07:58
PROVIDERS: ATTEND Internal Medicine
DX: Z01.812 Encounter for preprocedural laboratory examination (principal); E78.5 Hyperlipidemia, unspecified; Z79.899 Other long term (current) drug therapy; E03.9 Hypothyroidism, unspecified; R42 Dizziness and giddiness
CPT/HCPCS: 36415; 80053; 80061; 83721; 84443; 85025

== ENCOUNTER 2023-02-14 16:23 | Outpatient (CLI) | payer MEDICARE | END 2023-02-14 16:24 | disposition critical access hospital (66) | LOC: EMS 16:23 | DX: S03.2XXA Dislocation of tooth, initial encounter (principal); S01.531A Puncture wound without foreign body of lip, initial encounter; S00.31XA Abrasion of nose, initial encounter; S60.511A Abrasion of right hand, initial encounter; W18.39XA Other fall on same level, initial encounter; Y92.414 Local residential or business street as the place of occurrence of the external cause; R42 Dizziness and giddiness | CPT/HCPCS: A0425; A0429 ==

== ENCOUNTER 2023-02-14 17:00 | Emergency (ER) | payer MEDICARE ==
[2023-02-14] MEDS ORDERED: oxyCODONE 5 MG TABLET PO STA (17:31)
[2023-02-14] MEDS ORDERED: TETANUS/DIPHTHERIA/PERTUSSIS 0.5 ML SYRINGE IM ONE (17:32)
[2023-02-14 17:51] LABS: BASOPHILS # (AUTO) 0.1 10^3/uL (0.0-0.1); BASOPHILS % (AUTO) 0.4 %; EOSINOPHILS # (AUTO) 0.2 10^3/uL (0.0-0.7); EOSINOPHILS % (AUTO) 1.3 %; HCT - HEMATOCRIT 40.1 % (37.0-47.0); HGB - HEMOGLOBIN 12.9 g/dL (12.0-16.0); LYMPHOCYTES # (AUTO) 1.3 10^3/uL (1.5-3.5); LYMPHOCYTES % (AUTO) 10.5 %; MEAN CORPUSCULAR HEMOGLOBIN 28.5 pg (27.0-31.0); MEAN CORPUSCULAR HGB CONC 32.2 g/dL (32.0-36.0); MEAN CORPUSCULAR VOLUME 88.5 fL (81.0-99.0); MEAN PLATELET VOLUME 10.3 fL (7.9-10.8); MONOCYTES # (AUTO) 0.6 10^3/uL (0.0-1.0); MONOCYTES % (AUTO) 5.1 %; NEUTROPHILS % (AUTO) 82.3 %; PLT - PLATELET COUNT 229 10^3/uL (130-450); RED BLOOD COUNT 4.53 10^6/uL (4.20-5.40); WHITE BLOOD COUNT 12.2 x10^3/uL (4.8-10.8)
[2023-02-14 18:10] LABS: ALBUMIN 4.1 g/dL (3.2-5.5); ALBUMIN/GLOBULIN RATIO 1.9 (1.0-2.2); BILIRUBIN,TOTAL 0.5 mg/dL (0.2-1.0); CALCIUM 9.5 mg/dL (8.5-10.3); CREATININE 0.7 mg/dL (0.6-1.3); TOTAL PROTEIN 6.3 g/dL (6.4-8.9)
[2023-02-14] MEDS ORDERED: BUFFERED LIDOCAINE 10 ML SYRINGE SUBQ STA (18:26)
--- NOTE | 2023-02-14 18:45 | CT Report ---
PROCEDURE: MAXILLOFACIAL WO INDICATIONS: GLF/UPPER FACIAL INJURY TECHNIQUE: Noncontrast 1.5 mm thick axial images acquired from the mandible through the frontal sinuses, with co vielka and sagittal reformatting. For radiation dose reduction, the following was used: automated ex posure control, adjustment of mA and/or kV according to patient size. COMPARISON: Correlation is made with the accompanying CT examinations. FINDINGS: Image quality: There is artifact associated with the metallic dental work. Bones and teeth: Orbital vicente are intact. Sinus vicente show no fracture or deformity. Nasal bones and septum are intact. There is chronic mild rightward nasal septal deviation. Visualized portions o f the mandible demonstrate no fractures or subluxation. Zygomatic arches are intact. Pterygoid plat es are intact. Visualized portions of the skull base and auditory canals are intact. Sinuses: Paranasal sinuses are aerated, without fluid levels, mucosal thickening, or mucoceles. The ostiomeatal complexes are patent, yet they are constitutionally narrowed, with bilateral Guerrero cells . Mastoid air cells are aerated. Soft tissues: No edema, masses, or fluid collections. No enlarged lymph nodes. No soft tissue lace rations or debris. Vascular: Visualized vascular structures appear normal in the absence of contrast. Bony vascular fo ramina and canals are intact. IMPRESSION: No displaced facial bone fracture is seen. Reviewed by: James Celaya MD on 02/14/2023 5:43 PM [facility] Approved by: James Celaya MD on 02/14/2023 5:43 PM [facility] Station ID: [id number]
--- NOTE | 2023-02-14 18:46 | CT Report ---
PROCEDURE: HEAD WO INDICATIONS: GLF, FRONT HEAD TRAUMA TECHNIQUE: Noncontrast 4.5 mm thick angled axial sections acquired from the foramen magnum to the vertex. For r adiation dose reduction, the following was used: automated exposure control, adjustment of mA and/or kV according to patient size. COMPARISON: 06/11/2020. Correlation is also made with the accompanying CT examinations. FINDINGS: Image quality: There is streak artifact seen through the skull base. CSF spaces: Basal cisterns are patent. No extra-axial fluid collections. Ventricles are normal in size and shape. Brain: No midline shift. No intracranial masses or hemorrhage. Catalan-white matter interface is norm al. Skull and face: There is a mild scalp hematoma seen involving the left forehead, without an associat ed calvarial fracture. Calvarium and visualized facial bones are intact, without suspicious lesions. Sinuses: Visualized sinuses and mastoids are clear. IMPRESSION: Mild left forehead scalp hematoma seen, without an associated fracture. No acute intracranial pathology. No intracranial hemorrhage is seen. Reviewed by: James Celaya MD on 02/14/2023 5:44 PM [facility] Approved by: James Celaya MD on 02/14/2023 5:44 PM [facility] Station ID: [id number]
--- NOTE | 2023-02-14 18:47 | CT Report ---
PROCEDURE: CERVICAL SPINE WO INDICATIONS: GLF, HEAD/NECK PAIN TECHNIQUE: Noncontrast 3 mm thick sections acquired from the skull base to the T4 level. Sagittal and coronal r eformats were then constructed. For radiation dose reduction, the following was used: automated exp osure control, adjustment of mA and/or kV according to patient size. COMPARISON: 06/04/2020. Correlation is made with the accompanying CT examinations. FINDINGS: Image quality: Excellent. Bones: No fractures or dislocations. Visualized superior ribs are intact. Within the left medial c lavicle, there is a presumed bone island seen, as on series 2 image 102. Focal degenerative change can be seen involving the C1-C2 interface anteriorly. There is moderate to severe disc space narrowing seen at C5-C6 and C6-C7. Posteriorly directed endplate osteophytes are se en, which are worst at C5-C6. Milder degenerative changes are seen elsewhere. Multiple levels of fa cet hypertrophy can be seen. Soft tissues: Prevertebral soft tissues are normal in thickness. No paravertebral hematomas. No ap ical pneumothoraces. Left-sided pacer leads are partially seen. IMPRESSION: Negative for cervical spine fracture. Cervical spinal degenerative changes are seen, which are worst inferiorly. Reviewed by: James Celaya MD on 02/14/2023 5:46 PM [facility] Approved by: James Celaya MD on 02/14/2023 5:46 PM [facility] Station ID: [id number]
--- NOTE | 2023-02-14 19:00 | ED Physician Documentation ---
PD HPI HEAD INJURY - Stated complaint Stated Complaint: DIZZY/GLF - Chief complaint Chief Complaint: Neuro - History obtained from History obtained from: Patient, EMS - Additional information Additional information: 87yoF presents by EMS from home for GLF with facial injury. Patient walks outside daily with her . She felt lightheaded and tripped, landing on her face. Denies loss of consciousness, denies use of blood thinners. Patient has entirely avulsed tooth. Review of Systems Constitutional: denies: Fever, Chills Throat: reports: Dental pain / toothache. denies: Oral lesions / sores, Sore throat Skin: reports: Laceration (s). 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 Cardiovascular: Pacemaker HEENT: Cataracts - Present Medications Home Medications: Ambulatory Orders Medication Instructions Recorded Confirmed Levothyroxine [Synthroid] 137 mcg PO DAILY 11/21/15 02/14/23 Oxybutynin [Ditropan] 5 mg PO BID 11/21/15 02/14/23 Acetaminophen [Tylenol] 650 - 975 mg PO Q4HR PRN #100 10/24/16 02/14/23 tablet Senna [Senokot] 8.6 - 17.2 mg PO ONCE #14 tablet 10/24/16 02/14/23 Doxycycline Hyclate 100 mg PO BID #14 tab 02/14/23 Lisinopril [Zestril] 2.5 mg PO DAILY 02/14/23 02/14/23 - Allergies Allergies/Adverse Reactions: Allergies Allergy/AdvReac Type Severity Reaction Status Date / Time aspirin Allergy Emesis Verified 02/14/23 17:17 - Social History Does the pt smoke?: No Smoking Status: Never smoker Does the pt drink ETOH?: Yes Does the pt have substance abuse?: No - Immunizations Immunizations are current?: Yes - POLST Patient has POLST: No PD ED PE NORMAL - Vitals Vital signs reviewed: Yes - General General: Alert and oriented X 3, Well developed/nourished, Other (obvious trauma to face) - HEENT HEENT: PERRL, EOMI, Ears normal, Moist mucous membranes, Other (center lip avulsion) - Neck Neck: Supple, no meningeal sign, No bony TTP - Cardiac Cardiac: RRR, Strong equal pulses - Respiratory Respiratory: No respiratory distress, Clear bilaterally - Abdomen Abdomen: Soft, Non tender, Non distended - Derm Derm: Normal color, Warm and dry, Other (center lip avulsion) - Extremities Extremities: No deformity, No tenderness to palpate, Normal ROM s pain - Neuro Neuro: Alert and oriented X 3, staff occupational therapist 2-12 intact, No motor deficit, Normal speech Results - Vitals Vitals: Vital Signs - 24 hr 02/14/23 02/14/23 17:07 20:01 Temperature 36.3 C L Heart Rate 73 78 Respiratory 18 18 Rate Blood Pressure 147/61 H 156/88 H O2 Saturation 100 98 Oxygen O2 Source Room air - Labs Labs: Laboratory Tests 02/14/23 02/14/23 17:47 17:47 WBC 12.2 H RBC 4.53 Hgb 12.9 Hct 40.1 MCV 88.5 MCH 28.5 MCHC 32.2 RDW 13.0 Plt Count 229 MPV 10.3 Neut # (Auto) 10.0 H Lymph # (Auto) 1.3 L Perkins # (Auto) 0.6 Eos # (Auto) 0.2 Baso # (Auto) 0.1 Absolute Nucleated RBC 0.00 Nucleated RBC % 0.0 Sodium 140 Potassium 4.0 Chloride 106 Carbon Dioxide 26 Anion Gap 8.0 BUN 15 Creatinine 0.7 Estimated GFR (MDRD) 80 L Glucose 115 H Calcium 9.5 Total Bilirubin 0.5 AST 30 ALT 13 Alkaline Phosphatase 78 Total Protein 6.3 L Albumin 4.1 Globulin 2.2 Albumin/Globulin Ratio 1.9 PD Medical Decision Making - ED course Complexity details: reviewed results, re-evaluated patient, considered differential, d/w patient, d/w benefits consultant ED course: Ground-level fall with head trauma and dental avulsion. Patient is not on blood thinners, but due to age patient requires head CT scan. Due to distracting injuries facial and neck CTs also ordered. Front lip is evulsed, there is a small, already shriveled flap of skin, nothing amenable to suture or repair. I discussed the patient's case with Dr. Oliver of [facility], who stated that vermilion generally repairs very well and patient can be managed conservatively with Vaseline dressing and he will follow-up with her on Saturday 02/17 in his clinic. He recommended against trying to splint the avulsed tooth in place, recommending that she allow the gums to heal and follow implant if desired in the future. CT imaging negative for intracranial hemorrhage or acute fracture. Patient's pain well-controlled. She was informed of all imaging findings as well as OMFS recommendations. She was given referral to Dr. Oliver' office and will call on Thursday for follow-up appointment. Antibiotics sent to pharmacy of choice. Departure - Departure Disposition: Home, Self Care Clinical Impression: Avulsion of lip Tooth avulsion Qualifiers: Encounter type: initial encounter Qualified Code(s): S03.2XXA - Dislocation of tooth, initial encounter Condition: Stable Instructions: ED Fx Tooth Follow-Up: Valeriy Oliver DDS [Provider Admit Priv/Credential] - Prescriptions: Doxycycline Hyclate 100 mg PO BID #14 tab Forms: PCP List Discharge Date/Time: 02/14/23 20:01
[2023-02-14] MEDS ORDERED: DOXYCYCLINE 100 MG TABLET PO STA (19:09)
[2023-02-14 20:06] VITALS: BP 156/88; O2SAT 98
== END 2023-02-14 20:01 | disposition home or self-care (01) ==
LOC: EDUNIT# → ED 17:00
DX: S03.2XXA Dislocation of tooth, initial encounter (principal); S01.511A Laceration without foreign body of lip, initial encounter; W19.XXXA Unspecified fall, initial encounter; Z23 Encounter for immunization
CPT/HCPCS: 36415; 70450; 70486; 72125; 80053; 85025; 90471; 90715; 99284; A9270

== ENCOUNTER 2023-10-07 09:58 | Outpatient (CLI) | payer MEDICARE | END 2023-10-07 23:59 | disposition critical access hospital (66) | LOC: EMS 09:58 | DX: R42 Dizziness and giddiness (principal); M25.511 Pain in right shoulder; W06.XXXA Fall from bed, initial encounter; Y92.003 Bedroom of unspecified non-institutional (private) residence as the place of occurrence of the external cause | CPT/HCPCS: A0425; A0429 ==

== ENCOUNTER 2023-10-07 10:38 | Emergency (ER) | payer MEDICARE ==
--- NOTE | 2023-10-07 10:42 | ED Physician Documentation ---
PD HPI UPPER EXT INJURY - Stated complaint Stated Complaint: GLF/R SHOULDER PX - History obtained from History obtained from: Patient, EMS - History of Present Illness Location: Right, Shoulder Type of injury: Fall (she felt lightheaded with standing and fell to the right onto right shoulder and struck face. Pain with ROM right shoulder.) Where injury occurred: Home Timing - onset: How many days ago (2) Timing - duration: Days Timing - details: Abrupt onset, Still present Worsened by: Moving, Palpating Associated symptoms: No: Weakness, Numbness Contributing factors: No: Anticoagulated Recently seen: Clinic (seen at Cardiology office yesterday regarding the lightheaded episdoes she has had for many months. Had ECG, some labs drawn and scheduled for ECHO in few months. Did have the shoulder pain at the time but did not bring it up to the pin cleaner.) Review of Systems Constitutional: denies: Fever, Chills Nose: denies: Rhinorrhea / runny nose, Congestion Throat: denies: Sore throat Cardiac: reports: Palpitations (at times). 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 Cardiovascular: Pacemaker HEENT: Cataracts - Present Medications Home Medications: Ambulatory Orders Medication Instructions Recorded Confirmed Levothyroxine [Synthroid] 137 mcg PO DAILY 11/21/15 10/07/23 Acetaminophen [Tylenol] 650 - 975 mg PO Q4HR PRN #100 10/24/16 10/07/23 tablet Senna [Senokot] 8.6 - 17.2 mg PO ONCE #14 tablet 10/24/16 10/07/23 Cholecalciferol (Vitamin D3) 1 cap PO DAILY 10/07/23 10/07/23 [Vitamin D3] Docusate Sodium 100Mg Capsule 1 cap PO PRN PRN 10/07/23 10/07/23 [Colace 100Mg Capsule] - Allergies Allergies/Adverse Reactions: Allergies Allergy/AdvReac Type Severity Reaction Status Date / Time aspirin Allergy Emesis Verified 10/07/23 10:50 - Social History Does the pt smoke?: No Smoking Status: Never smoker Does the pt drink ETOH?: Yes Does the pt have substance abuse?: No - Immunizations Immunizations are current?: Yes - POLST Patient has POLST: No PD ED PE NORMAL - Vitals Vital signs reviewed: Yes - General General: Alert and oriented X 3, Well developed/nourished, Other (appears in pain with any attempt ROM or palpation right shoulder. ) - HEENT HEENT: Other (some tenderness right parietal area without defromith. ) - Neck Neck: Supple, no meningeal sign, No bony TTP - Respiratory Respiratory: No respiratory distress, Clear bilaterally, Other (no chestwall tenderness. ) - Abdomen Abdomen: Soft, Non tender - Derm Derm: Normal color, Warm and dry - Extremities Extremities: Other (right shoulder with tednerness diffusely, sulcus felt under the AC joint and fullness to anterior c/w anterior dislocation. Can get xray. ) - Neuro Neuro: Alert and oriented X 3, No motor deficit, No sensory deficit, Normal speech Results - Vitals Vitals: Vital Signs - 24 hr 10/07/23 10/07/23 10/07/23 10:41 10:57 12:49 Temperature 36.4 C L 36.4 C L Heart Rate 64 64 66 Respiratory 16 16 15 Rate Blood Pressure 167/73 H 167/73 H 156/81 H O2 Saturation 95 96 98 If not protocol 2 : Oxygen Flow, liters/minute 10/07/23 10/07/23 10/07/23 12:52 13:16 13:27 Temperature 36.7 C 36.2 C L 36.2 C L Heart Rate 60 59 L 60 Respiratory 14 22 16 Rate Blood Pressure 156/81 H 156/95 H 150/82 H O2 Saturation 97 94 93 If not protocol 2 3 2 : Oxygen Flow, liters/minute 10/07/23 10/07/23 10/07/23 13:38 13:46 13:47 Temperature 36.1 C L 36.2 C L 36.2 C L Heart Rate 60 59 L 60 Respiratory 13 12 12 Rate Blood Pressure 176/74 H 152/78 H 168/75 H O2 Saturation 94 94 94 If not protocol 1 2 1 : Oxygen Flow, liters/minute 10/07/23 10/07/23 10/07/23 14:13 14:28 14:30 Temperature 36.3 C L 36.5 C Heart Rate 62 63 64 Respiratory 11 L 14 15 Rate Blood Pressure 177/76 H 169/80 H 152/82 H O2 Saturation 91 L 96 92 If not protocol 1 1 : Oxygen Flow, liters/minute 10/07/23 10/07/23 10/07/23 14:35 14:40 14:45 Temperature Heart Rate 60 58 L 60 Respiratory 12 12 12 Rate Blood Pressure 118/66 128/74 145/85 H O2 Saturation 98 96 97 If not protocol : Oxygen Flow, liters/minute 10/07/23 10/07/23 10/07/23 14:50 14:58 15:00 Temperature Heart Rate 70 59 L 72 Respiratory 12 16 16 Rate Blood Pressure 157/76 H 164/80 H O2 Saturation 98 93 If not protocol : Oxygen Flow, liters/minute 10/07/23 17:48 Temperature Heart Rate 64 Respiratory 18 Rate Blood Pressure 156/88 H O2 Saturation 95 If not protocol : Oxygen Flow, liters/minute Oxygen O2 Source Room air Oxygen Flow Rate 1 - Rads (name of study) right shoulder Relevant Findings:: Prelim report reviewed (anterior dislocation and greater tuberosity fracture. Possible glenoid fracture. ), EMP independent interpretation of test repeat shoulder Relevant Findings:: Prelim report reviewed, EMP independent interpretation of test (attempt #2 - now reduced. ) head CT Relevant Findings:: Prelim report reviewed (no ICH. ), EMP independent interpretation of test Procedures - Reduction Body part reduced: Right, Shoulder Fracture or dislocation: Fracture dislocation Shoulder reduction technique: Other (all types of movements, and finally clunked back into place.) - Procedural sedation Sedation prep: Informed consent, Time out completed, Last meal, PE performed, ASA 2 - mild disease Sedation Medications: propofol (120 mg.) Mallampati classification: I Patient status during sedation: Responds to verbal, Responds to tactile, Vitals remained stable, Recovered uneventfully, Hypoxia (On resedation with Dr. Chairez, briefly went to lower sats at 88-90%, with then airway repositioned and blowby extended.) Sedation recovery: Recovered uneventfully, Back to baseline Time in sedation (Minutes): 25 (sedated for attempt that was not reduced, then sedation with Dr. Chairez and got reduction. ) PD Medical Decision Making - ED course Complexity details: reviewed results, considered differential (injured shoulder 2 days ago. Has discloation with tuberosity fracture. Sedated for reduction and felt in place but repeat xray was still out. Talked with Dr. Chairez and we both worked together for sedation and reduction. ), d/w patient, d/w urban design consultant Departure - Departure Disposition: 01 Home, Self Care Clinical Impression: Fall, accidental, Anterior shoulder dislocation, Greater tuberosity of humerus fracture Condition: Stable Record reviewed to determine appropriate education?: Yes Instructions: ED Dislocation Shoulder Redu, ED Fx Shoulder Follow-Up: Orthopedic Care [Provider Group] Comments: We were able to get your shoulder dislocation back in position on the second attempt. There is still these small broken portion of the off the outer part of the shoulder but it does not involve the joint movement itself. This should heal with time over the next 4 to 6 weeks. The orthopedist does want to see you in the office in the next 1 to 1-1/2 weeks, call tomorrow for an appointment. Use the sling to help support the shoulder. You can have gentle range of motion of the shoulder periodically so it is not as stiff. Use Tylenol/acetaminophen 650 mg 4 times daily regularly for the next week or 2. Add ibuprofen or naproxen 3 times a day if needed for pain. Continue your other usual medicines. We did do the CT of your head as well and there is no signs of bleeding or injury there and you do not demonstrate any concussive symptoms per se. Forms: PCP List Discharge Date/Time: 10/07/23 16:15
[2023-10-07] MEDS: KETOROLAC 15 MG/ML VIAL IVP STA (10:56)
--- NOTE | 2023-10-07 11:37 | XRAY Report ---
PROCEDURE: Shoulder 2+V RT INDICATIONS: fall with shoulder pain on ROM TECHNIQUE: 3 views of the shoulder were acquired. COMPARISON: None. FINDINGS: Bones: Anterior inferior dislocation with associated displaced fracture involving the greater tubero sity. Possible inferior glenoid fracture as well. Visualized ribs appear intact. Soft tissues: No suspicious soft tissue calcifications. The visualized lungs are within normal limi ts. IMPRESSION: 1. Anterior shoulder dislocation with associated comminuted displaced greater tuberosity fracture and possible inferior bony glenoid fracture as well. Reviewed by: Andrzej iSmon MD on 10/07/2023 11:35 AM PDT Approved by: Andrzej Simon MD on 10/07/2023 11:35 AM PDT Station ID: [id number]
[2023-10-07] MEDS: HYDROmorphone 0.5 MG/0.5 ML SYRINGE IVP STA (12:22)
--- NOTE | 2023-10-07 12:39 | CT Report ---
PROCEDURE: Head WO INDICATIONS: fall 2 days ago TECHNIQUE: Noncontrast 4.5 mm thick angled axial sections acquired from the foramen magnum to the vertex. For r adiation dose reduction, the following was used: automated exposure control, adjustment of mA and/or kV according to patient size. COMPARISON: 02/14/2023. FINDINGS: Image quality: Excellent. CSF spaces: Basal cisterns are patent. No extra-axial fluid collections. Ventricles are normal in size and shape. Brain: No midline shift. No intracranial masses or hemorrhage. Catalan-white matter interface is norm al. Skull and face: Calvarium and visualized facial bones are intact, without suspicious lesions. Sinuses: Visualized sinuses and mastoids are clear. IMPRESSION: No acute intracranial pathology. Reviewed by: Andrzej Simon MD on 10/07/2023 12:38 PM PDT Approved by: Andrzej Simon MD on 10/07/2023 12:38 PM PDT Station ID: [id number]
[2023-10-07] MEDS: HYDROmorphone 1 MG/ML CARPUJECT IVP STA (12:43)
--- NOTE | 2023-10-07 14:52 | CONSULTATION NOTE ---
Referring Provider Name of Referring Provider:: Richie Reinoso Consult Date: 10/07/23 History of Present Illness - History of Present Illness HPI Comment/Other: This patient is an 88-year-old woman who apparently had a unwitnessed fall at home and sustained a right dominant fracture dislocation of her right shoulder. The first attempt to reduce her shoulder dislocation under conscious sedation was unsuccessful. I was contacted to see assist in the second attempt. Speaking with the patient she was unclear about the history of her accident. No known history of a prior shoulder dislocation. 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: Hysterectomy Cardiovascular: reports: Pacemaker HEENT: reports: Cataracts - POLST Patient has POLST: No Meds/Allgy - Home Medications Home Medications: Ambulatory Orders Medication Instructions Recorded Confirmed Levothyroxine [Synthroid] 137 mcg PO DAILY 11/21/15 10/07/23 Acetaminophen [Tylenol] 650 - 975 mg PO Q4HR PRN #100 10/24/16 10/07/23 tablet Senna [Senokot] 8.6 - 17.2 mg PO ONCE #14 tablet 10/24/16 10/07/23 Cholecalciferol (Vitamin D3) 1 cap PO DAILY 10/07/23 10/07/23 [Vitamin D3] Docusate Sodium 100Mg Capsule 1 cap PO PRN PRN 10/07/23 10/07/23 [Colace 100Mg Capsule] - Allergies Allergies/Adverse Reactions: Allergies Allergy/AdvReac Type Severity Reaction Status Date / Time aspirin Allergy Emesis Verified 10/07/23 10:50 Exam - Vital Signs Vital Signs: Vital Signs x48h Temp Pulse Resp BP Pulse Ox O2 Flow Rate 10/07/23 14:13 36.3 C L 62 11 L 177/76 H 91 L 1 10/07/23 13:47 36.2 C L 60 12 168/75 H 94 1 10/07/23 13:46 36.2 C L 59 L 12 152/78 H 94 2 10/07/23 13:38 36.1 C L 60 13 176/74 H 94 1 10/07/23 13:27 36.2 C L 60 16 150/82 H 93 2 10/07/23 13:16 36.2 C L 59 L 22 156/95 H 94 3 10/07/23 12:52 36.7 C 60 14 156/81 H 97 2 10/07/23 12:49 36.4 C L 66 15 156/81 H 98 2 10/07/23 10:57 64 16 167/73 H 96 10/07/23 10:41 36.4 C L 64 16 167/73 H 95 - Physical Exam Comments/Other: Examination: On palpation patient has minimal tenderness on palpation although she is still somewhat groggy from her first conscious sedation attempt. Can palpate a depression in the subacromial region of her right shoulder. Patient's sensation in the distribution of her axillary and or musculocutaneous nerves appear to be intact. She moves her hand on command. X-rays: Films were taken originally shows evidence of an anterior inferior shoulder dislocation. Appears as if there is a avulsion type fracture of the greater tuberosity. Conclusion/Plan - Problem List (1) Closed fracture dislocation of right shoulder Conclusion/Plan: Plan: Under conscious sedation we then applied anterior inferior traction on the right shoulder with countertraction. There was a palpable clunk sensation and a reexamination indicated that humeral head appeared to be in the subacromial space in his usual location. Patient had easy range of motion of her shoulder following this reduction as well. X-rays: Films were taken after our reduction maneuver shows the humeral head to be reduced in the joint in both AP and lateral projections. Patient was put into a shoulder immobilizer. Will be managed as an outpatient with analgesics as needed. Should follow-up in orthopedic clinic in about a week to 10 days for repeat x-rays and examination and and starting on physical therapy
--- NOTE | 2023-10-07 15:13 | XRAY Report ---
PROCEDURE: Shoulder 1V RT INDICATIONS: post reduction x-ray TECHNIQUE: 3 views of the shoulder were acquired. COMPARISON: 10/07/2023 FINDINGS: Bones: Subcoracoid anterior humeral dislocation Soft tissues: No suspicious soft tissue calcifications. IMPRESSION: Persistent anterior shoulder dislocation. No change. Reviewed by: Vasquez Feldman MD on 10/07/2023 2:12 PM AKDT Approved by: Vasquez Feldman MD on 10/07/2023 2:12 PM AKDT Station ID: [id number]
[2023-10-07] MEDS: PROPOFOL 200 MG/20 ML VIAL IVP STA (15:55)
--- NOTE | 2023-10-07 17:10 | XRAY Report ---
PROCEDURE: Shoulder 2+V RT INDICATIONS: POST REDUCTION TECHNIQUE: 2 views of the shoulder were acquired. COMPARISON: Earlier study from the same day. FINDINGS: Bones: There is interval reduction of earlier noted anterior inferior glenohumeral joint dislocation . Right shoulder alignment is now anatomic. No dislocation is seen on the current study. Moderate acr omioclavicular joint osteoarthritis is seen. Comminuted fracture involving greater tuberosity of mohan ral head is seen better evaluated on the earlier study from the same day. No suspicious bony lesions. Visualized ribs appear intact. Soft tissues: No suspicious soft tissue calcifications. The visualized lungs are within normal limi ts. IMPRESSION: Interval reduction of earlier noted anterior glenohumeral joint dislocation with anatomic shoulder al ignment. No new dislocation. Acute comminuted and slightly displaced greater tuberosity fracture. No other fracture is seen. Moder ate acromioclavicular joint osteoarthritis. Reviewed by: Jackson Hutton MD on 10/07/2023 5:07 PM PDT Approved by: Jackson Hutton MD on 10/07/2023 5:07 PM PDT Station ID: [id number]
[2023-10-07 17:57] VITALS: BP 156/88; O2SAT 95
== END 2023-10-07 16:15 | disposition home or self-care (01) ==
LOC: EDUNIT# → ED 10:38
DX: S42.251A Displaced fracture of greater tuberosity of right humerus, initial encounter for closed fracture (principal); W18.39XA Other fall on same level, initial encounter; E03.9 Hypothyroidism, unspecified; Z79.899 Other long term (current) drug therapy
CPT/HCPCS: 23665; 70450; 73020; 73030; 96374; 96375; 99152; 99153; 99284; 99285; J1170

== ENCOUNTER 2023-10-09 08:45 | Outpatient (CLI) | payer MEDICARE | END 2023-10-09 08:46 | disposition critical access hospital (66) | LOC: EMS 08:45 | DX: R53.1 Weakness (principal); R32 Unspecified urinary incontinence; R42 Dizziness and giddiness | CPT/HCPCS: A0425; A0429 ==

== ENCOUNTER 2023-10-09 09:23 | Inpatient (IN) | payer MEDICARE ==
--- NOTE | 2023-10-09 09:33 | ED Physician Documentation ---
History of Present Illness - Stated complaint Stated Complaint: WEAK - History obtained from History obtained from: Patient, EMS - Additonal information Additional information: She has a history of nonischemic cardiomyopathy with complete heart block and permanent pacemaker in place. She was recurrent vertigo that improved was seen by my partner on the for shoulder pain and had a difficult to reduce anterior shoulder dislocation. She is here because basically she has not gotten out of bed. She is a vague and despondent historian, answering "I do not know," to most questions. For example I asked her when she originally fell and she does not remember or will not say. She says she is dizzy more than week. When I ask her if it is her usual dizziness related to chronic vertigo she again responds "I do not know." Reportedly has not been out of bed in several days. Lives with her . PD PAST MEDICAL HISTORY - Present Medications Home Medications: Ambulatory Orders Medication Instructions Recorded Confirmed Levothyroxine [Synthroid] 125 mcg PO DAILY 11/21/15 10/09/23 Acetaminophen [Tylenol] 650 - 975 mg PO Q4HR PRN #100 10/24/16 10/09/23 tablet Senna [Senokot] 8.6 - 17.2 mg PO ONCE #14 tablet 10/24/16 10/09/23 Cholecalciferol (Vitamin D3) 1 cap PO DAILY 10/07/23 10/09/23 [Vitamin D3] Docusate Sodium 100Mg Capsule 1 cap PO PRN PRN 10/07/23 10/09/23 [Colace 100Mg Capsule] - Allergies Allergies/Adverse Reactions: Allergies Allergy/AdvReac Type Severity Reaction Status Date / Time aspirin Allergy Emesis Verified 10/09/23 09:45 PD ED PE NORMAL - Vitals Vital signs reviewed: Yes - General General: Alert and oriented X 3, No acute distress - HEENT HEENT: PERRL, EOMI - Neck Neck: Supple, no meningeal sign, No bony TTP - Cardiac Cardiac: RRR, No murmur - Respiratory Respiratory: No respiratory distress, Clear bilaterally - Abdomen Abdomen: Normal bowel sounds, Soft, Non tender - Back Back: No CVA TTP, No spinal TTP - Derm Derm: Normal color, Warm and dry - Extremities Extremities: No edema, No calf tenderness / cord, Other (Severe diffuse tenderness about the right shoulder and cannot range it. 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-12 intact, No motor deficit (She seems to have good peripheral strength in the arms and legs), No sensory deficit, Normal speech Eye Opening: Spontaneous Motor: Obeys Commands Verbal: Oriented GCS Score: 15 - Psych Psych: Normal mood, Normal affect Results - Vitals Vitals: Vital Signs - 24 hr 10/09/23 10/09/23 09:38 12:30 Temperature 36.4 C L Heart Rate 70 66 Respiratory 17 Rate Blood Pressure 158/74 H 159/75 H O2 Saturation 97 97 Oxygen O2 Source Room air - Labs Labs: Laboratory Tests 10/09/23 10/09/23 10/09/23 09:55 10:00 10:00 WBC 7.9 RBC 3.50 L Hgb 10.4 L Hct 32.6 L MCV 93.1 MCH 29.7 MCHC 31.9 L RDW 15.9 H Plt Count 211 MPV 10.6 Neut # (Auto) 5.4 Lymph # (Auto) 1.9 Piatt # (Auto) 0.4 Eos # (Auto) 0.2 Baso # (Auto) 0.0 Absolute Nucleated RBC 0.00 Nucleated RBC % 0.0 Sodium 135 Potassium 3.6 Chloride 102 Carbon Dioxide 27 Anion Gap 6.0 BUN 15 Creatinine 0.9 Estimated GFR (MDRD) 59 L Glucose 93 Calcium 8.8 Phosphorus 2.2 L Magnesium 2.0 Total Bilirubin 0.7 AST 113 H ALT 39 Alkaline Phosphatase 53 Total Creatine Kinase 3484 H* Total Protein 6.2 L Albumin 4.0 Globulin 2.2 Albumin/Globulin Ratio 1.8 Urine Color YELLOW Urine Clarity CLEAR Urine pH 7.0 Ur Specific [place] 1.015 Urine Protein TRACE Urine Glucose (UA) NEGATIVE Urine Ketones NEGATIVE Urine Occult Blood TRACE-INTA Urine Nitrite NEGATIVE Urine Bilirubin NEGATIVE Urine Urobilinogen 0.2 (NORMAL) Ur Leukocyte Esterase NEGATIVE Ur Microscopic Review NOT INDICATED Urine Culture Comments NOT INDICATED - Rads (name of study) CT of the head and cervical spine were without acute traumatic findings. Relevant Findings:: Final report received, EMP independent interpretation of test PD Medical Decision Making - ED course ED course: 88-year-old woman presents with generalized weakness associated with dizziness and now nonambulatory. Workup demonstrates anemia on CBC which is mild. CMP showing mild elevation of AST and hypophosphatemia which I will replete orally. Her urinalysis is unremarkable. There was a significant delay to completion of imaging, specifically shoulder x- ray and CT of the head and neck which were without new acute findings. She did have the known greater tuberosity fracture of the right proximal humerus. She did have rhabdomyolysis and was given IV fluids. Spoke with Dr. Albert for admission at 3:23 PM. Departure - Departure Disposition: [facility] DC/Xfer Clinical Impression: Muscle weakness, Dizziness Rhabdomyolysis Qualifiers: Rhabdomyolysis type: non-traumatic Qualified Code(s): M62.82 - Rhabdomyolysis Shoulder fracture Qualifiers: Encounter type: subsequent encounter Fracture type: closed Laterality: right Fracture healing: with routine healing Qualified Code(s): S42.91XD - Fracture of right shoulder girdle, part unspecified, subsequent encounter for fracture with routine healing Condition: Serious
[2023-10-09 10:13] LABS: BASOPHILS % (AUTO) 0.5 %; EOSINOPHILS # (AUTO) 0.2 10^3/uL (0.0-0.7); EOSINOPHILS % (AUTO) 2.1 %; HCT - HEMATOCRIT 32.6 % (37.0-47.0); HGB - HEMOGLOBIN 10.4 g/dL (12.0-16.0); LYMPHOCYTES # (AUTO) 1.9 10^3/uL (1.5-3.5); LYMPHOCYTES % (AUTO) 23.8 %; MEAN CORPUSCULAR HEMOGLOBIN 29.7 pg (27.0-31.0); MEAN CORPUSCULAR HGB CONC 31.9 g/dL (32.0-36.0); MEAN CORPUSCULAR VOLUME 93.1 fL (81.0-99.0); MEAN PLATELET VOLUME 10.6 fL (7.9-10.8); MONOCYTES # (AUTO) 0.4 10^3/uL (0.0-1.0); MONOCYTES % (AUTO) 4.9 %; NEUTROPHILS # (AUTO) 5.4 10^3/uL (1.5-6.6); NEUTROPHILS % (AUTO) 68.2 %; PLT - PLATELET COUNT 211 10^3/uL (130-450); RED CELL DISTRIBUTION WIDTH 15.9 % (12.0-15.0); WHITE BLOOD COUNT 7.9 x10^3/uL (4.8-10.8)
[2023-10-09 10:14] LABS: BILIRUBIN,URINE NEGATIVE (NEGATIVE); GLUCOSE, URINE (UA) NEGATIVE (NEGATIVE); KETONES,URINE (UA) NEGATIVE (NEGATIVE); LEUKOCYTE ESTERASE, URINE NEGATIVE (NEGATIVE); NITRITE,URINE NEGATIVE (NEGATIVE); OCCULT BLOOD,URINE TRACE-INTA (NEGATIVE); PROTEIN,URINE TRACE mg/dL (NEGATIVE); UROBILINOGEN,URINE 0.2 (NORMAL) E.U./dL (NORMAL)
[2023-10-09 10:15] LABS: CLARITY,URINE CLEAR (CLEAR)
[2023-10-09 10:24] LABS: ALBUMIN/GLOBULIN RATIO 1.8 (1.0-2.2); BILIRUBIN,TOTAL 0.7 mg/dL (0.2-1.0); CALCIUM 8.8 mg/dL (8.5-10.3); CREATININE 0.9 mg/dL (0.6-1.3); PHOSPHORUS 2.2 mg/dL (2.5-5.0); POTASSIUM 3.6 mmol/L (3.5-4.5); TOTAL PROTEIN 6.2 g/dL (6.4-8.9)
[2023-10-09] MEDS: SODIUM CHLORIDE 0.9% 1,000 ML IV STA ×2 (12:27→12:33)
[2023-10-09] MEDS: NEUTRA-PHOS 250 MG TABLET PO STA (12:33)
--- NOTE | 2023-10-09 15:15 | XRAY Report ---
PROCEDURE: Shoulder 2+V RT INDICATIONS: cont pain TECHNIQUE: 3 views of the shoulder were acquired. COMPARISON: None. FINDINGS: Bones: Displaced greater tuberosity fracture of the proximal right humerus. No other fractures or di slocations. No suspicious bony lesions. Visualized ribs appear intact. Soft tissues: No suspicious soft tissue calcifications. The visualized lungs are within normal limi ts. IMPRESSION: Displaced greater tuberosity fracture of the proximal right humerus. Reviewed by: Andrzej Simon MD on 10/09/2023 3:14 PM PDT Approved by: Andrzej Simon MD on 10/09/2023 3:14 PM PDT Station ID: [id number]
--- NOTE | 2023-10-09 15:17 | CT Report ---
PROCEDURE: Head WO INDICATIONS: fall, weak TECHNIQUE: Noncontrast 4.5 mm thick angled axial sections acquired from the foramen magnum to the vertex. For r adiation dose reduction, the following was used: automated exposure control, adjustment of mA and/or kV according to patient size. COMPARISON: 10/07/2023. FINDINGS: Image quality: Excellent. CSF spaces: Basal cisterns are patent. No extra-axial fluid collections. Ventricles are normal in size and shape. Brain: No midline shift. No intracranial masses or hemorrhage. Catalan-white matter interface is norm al. Intracranial carotid calcifications. Age-related volume loss and small vessel ischemic change. Skull and face: Calvarium and visualized facial bones are intact, without suspicious lesions. Sinuses: Visualized sinuses and mastoids are clear. IMPRESSION: No acute intracranial pathology. Reviewed by: Andrzej Simon MD on 10/09/2023 3:15 PM PDT Approved by: Andrzej Simon MD on 10/09/2023 3:15 PM PDT Station ID: [id number]
--- NOTE | 2023-10-09 15:20 | CT Report ---
PROCEDURE: Cervical Spine WO INDICATIONS: fall,weak TECHNIQUE: Noncontrast 3 mm thick sections acquired from the skull base to the T4 level. Sagittal and coronal r eformats were then constructed. For radiation dose reduction, the following was used: automated exp osure control, adjustment of mA and/or kV according to patient size. COMPARISON: 02/14/2023. FINDINGS: Image quality: Excellent. Bones: No fractures or dislocations. Visualized superior ribs are intact. Cervical spondylosis. Dis c height loss and uncovertebral joint hypertrophy at C5-C6 and C6-C7. Right facet arthropathy at C3-C 4. Soft tissues: Prevertebral soft tissues are normal in thickness. No paravertebral hematomas. No ap ical pneumothoraces. IMPRESSION: 1. No acute cervical fracture or dislocation. 2. Cervical spondylosis. Reviewed by: Andrzej Simon MD on 10/09/2023 3:19 PM PDT Approved by: Andrzej Simon MD on 10/09/2023 3:19 PM PDT Station ID: [id number]
[2023-10-09] MEDS: MORPHINE 2 MG/ML CARPUJECT IVP STA (15:33)
[2023-10-09] MEDS ORDERED: ONDANSETRON ODT 4 MG TABLET TL PRN ×2 (16:09→18:23)
[2023-10-09] MEDS ORDERED: HYDROcod/ACETAM 5/325 MG TABLET PO PRN (16:09)
[2023-10-09] MEDS ORDERED: HYDROmorphone 0.5 MG/0.5 ML SYRINGE IVP PRN (16:09)
[2023-10-09] MEDS ORDERED: ACETAMINOPHEN 325 MG TABLET PO PRN (16:09)
[2023-10-09] MEDS ORDERED: SODIUM CHLORIDE FLUSH 0.9% 10 ML SYRINGE IVP PRN ×2 (16:09→18:25)
[2023-10-09] MEDS ORDERED: DOCUSATE SODIUM 100 MG CAPSULE PO PRN ×2 (16:12→18:21)
[2023-10-09] MEDS ORDERED: SENNA 8.6 MG TABLET PO PRN (16:12)
--- NOTE | 2023-10-09 16:27 | HISTORY & PHYSICAL EXAMINATION ---
Chief Complaint - Chief Complaint Chief Complaint: Right shoulder pain and dizziness History of Present Illness - Admitted From Admitted From:: Emergency room - History of Present Illness HPI Comment/Other: The patient is an 88-year-old female with a past medical history significant for complete heart block. She is status post pacemaker placement. She has a remote history of ischemic cardiomyopathy. However the daughter states that she was recently seen by her director medicare sales and has no heart failure. The patient has hypothyroidism and a history of mild dementia. For the past several months she has had increasing ambulatory dysfunction The patient was seen in the emergency room on 10/06/2013. She had had a fall at home and had a right fracture dislocation of her right shoulder. This was r educed under conscious sedation and the patient was sent home. The patient laid down at home and was unable to get up. She was in bed for just over 24 hours. This morning the patient's daughter noticed that she was altered past her baseline she still was unable to get out of bed so she was brought to the emergency room for further evaluation. In the emergency room she had a chemistry panel which was normal. Phosphorus level was somewhat low at 2.2. She had a mildly elevated AST but otherwise her liver panel was normal. CK level was elevated at 3484. CBC revealed white blood cell count of 7.9, hemoglobin of 10.4 and a platelet level of 211. She had a CT scan of the brain which revealed some volume loss and small vessel ischemic changes. She had a CT scan of the cervical spine which revealed some cervical spondylosis but nothing acute. Her right shoulder was x-rayed which revealed a displaced fracture of the proximal right humerus. By the time I saw her the patient's mental status has improved. The patient's daughter who is at the bedside states that after she received IV fluids in the emergency room her mentation is now back to its baseline. The patient is awake alert and oriented x 3 although clearly gets a little confused regarding her situation. She denies fever or chills. No chest pain or heart palpitations. She says she has pain in her right shoulder. She also has had some some pain in her lower back. She has had no nausea vomiting or diarrhea. No urinary complaints. She complains of persistent dizziness. She also says she feels profoundly weak. The patient's surrogate decision maker is her daughter Jyotsna Harrington [phone]. She is her healthcare power of transactional attorney along with her brother Jose Harrington. We did discuss her CODE STATUS and a POLST form was filled out. They have really never given much thought to her CODE STATUS before and for now would like for her to be a full code. She is going to discuss further with her brother and we are going to have another discussion about this prior to discharge. 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 - Substance History Use: Uses substance without health or social issues: NONE Abuse: Recurrent use of substance despite neg consequences: NONE Dependence: Experiences withdrawal or developed tolerances: NONE - POLST Patient has POLST: Yes POLST Status: Full Code Meds/Allgy - Home Medications Home Medications: Ambulatory Orders Medication Instructions Recorded Confirmed Levothyroxine [Synthroid] 125 mcg PO DAILY 11/21/15 10/09/23 Acetaminophen [Tylenol] 650 - 975 mg PO Q4HR PRN #100 10/24/16 10/09/23 tablet Senna [Senokot] 8.6 - 17.2 mg PO ONCE #14 tablet 10/24/16 10/09/23 Cholecalciferol (Vitamin D3) 1 cap PO DAILY 10/07/23 10/09/23 [Vitamin D3] Docusate Sodium 100Mg Capsule 1 cap PO PRN PRN 10/07/23 10/09/23 [Colace 100Mg Capsule] Aspirin Chewable [[place] 81 mg DAILY 10/09/23 10/09/23 Aspirin] - Allergies Allergies/Adverse Reactions: Allergies Allergy/AdvReac Type Severity Reaction Status Date / Time aspirin Allergy Emesis Verified 10/09/23 09:45 Review of Systems - Constitutional Constitutional: reports: Weakness - Cardiovascular Cariovascular: denies: Palpitations, Chest pain - Respiratory Respiratory: denies: Cough, Sputum production, Wheezing - Gastrointestinal Gastrointestinal: denies: Abdominal pain, Constipation, Diarrhea - Genitourinary Genitourinary: denies: Dysuria, Frequency, Urgency - Integumentary Integumentary: denies: Rash - Neurological Neurological: reports: General weakness, Dizziness - All Other Systems All Other Systems: reports: Reviewed and negative Prior Level of Functionality: She will she said occurred the patient has worsening ambulatory dysfunction but has been able to ambulate with a rolling walker. She has been requiring a little help with her ADLs Exam - Vital Signs Reviewed Vital Signs: Yes Vital Signs: Vital Signs x48h Temp Pulse Resp BP Pulse Ox 10/09/23 14:00 71 169/86 H 97 10/09/23 12:30 66 159/75 H 97 10/09/23 09:38 36.4 C L 70 17 158/74 H 97 - Physical Exam General Appearance: positive: No acute distress, Alert Eyes Bilateral: positive: Normal inspection ENT: positive: ENT inspection nml Neck: positive: Nml inspection Respiratory: positive: Chest non-tender, No respiratory distress, Breath sounds nml Cardiovascular: positive: Regular rate & rhythm, No murmur, No gallop. negative: Friction rub Abdomen: positive: Non-tender, No organomegaly, Nml bowel sounds Skin: positive: Color nml, No rash Extremities: positive: Other (The patient's right arm is in a sling. It is somewhat tender to palpation. Her right middle finger is somewhat bruised but not tender to palpation.) Neurologic/Psychiatric: positive: Oriented x3 (However she gets a little confused and talking about the whole overall picture), Other Conclusion/Plan - Problem List (1) Acute metabolic encephalopathy Conclusion/Plan: Likely secondary to dehydration and rhabdomyolysis. The patient's mentation returned to its baseline after receiving fluids in the emergency room. (2) Rhabdomyolysis Conclusion/Plan: This is quite mild. She will be hydrated with normal saline overnight. Will check a CK level in the morning Qualifiers: Rhabdomyolysis type: non-traumatic Qualified Code(s): M62.82 - Rhabdom yolysis (3) Proximal humerus fracture Conclusion/Plan: Pathologic due to ground-level fall. The patient has known osteopenia. Physical therapy and Occupational Therapy has been consulted. She has appropriate pain medications in place to include Tylenol, hydrocodone and IV Dilaudid for severe pain. (4) Anemia Conclusion/Plan: Likely an anemia of chronic disease. Will check a CBC in the morning. This is likely stable. I believe she is at her baseline (5) Hypothyroid Conclusion/Plan: Continue home dose of Synthroid (6) Vitamin D deficiency Conclusion/Plan: Continue supplementation (7) Elevated AST (SGOT) Conclusion/Plan: This can be followed up on as an outpatient (8) Hypophosphatemia Conclusion/Plan: Repleted in the emergency room. She will have a level drawn in the morning (9) Ambulatory dysfunction Conclusion/Plan: Patient has had increasing ambulatory dysfunction over the past several months. For the past 24 hours she has been unable to get out of bed. Physical therapy and Occupational Therapy will evaluate the patient. Disposition: The patient will be placed in observation in the hospital. She will be receiving IV fluids overnight. Physical therapy and Occupational Therapy will see her. Family is requesting home health services at discharge. Time spent: 35 minutes - Lab Results Fish Bones: 10/09/23 10:00 10/09/23 10:00
[2023-10-09] MEDS ORDERED: SODIUM CHLORIDE 0.9% 1,000 ML IV SCH (17:00)
[2023-10-09] MEDS: SODIUM CHLORIDE 0.9% 1,000 ML IV SCH (18:49)
[2023-10-09] MEDS: SODIUM CHLORIDE FLUSH 0.9% 10 ML SYRINGE IVP SCH (18:51)
[2023-10-09] MEDS: HYDROmorphone 0.5 MG/0.5 ML SYRINGE IVP PRN (19:28)
[2023-10-09] MEDS: SODIUM CHLORIDE FLUSH 0.9% 10 ML SYRINGE IVP PRN (19:28)
[2023-10-10 05:37] LABS: BASOPHILS # (AUTO) 0.1 10^3/uL (0.0-0.1); BASOPHILS % (AUTO) 0.7 %; EOSINOPHILS # (AUTO) 0.2 10^3/uL (0.0-0.7); EOSINOPHILS % (AUTO) 2.7 %; HCT - HEMATOCRIT 32.5 % (37.0-47.0); HGB - HEMOGLOBIN 10.3 g/dL (12.0-16.0); LYMPHOCYTES # (AUTO) 1.8 10^3/uL (1.5-3.5); LYMPHOCYTES % (AUTO) 24.3 %; MEAN CORPUSCULAR HGB CONC 31.7 g/dL (32.0-36.0); MEAN CORPUSCULAR VOLUME 94.8 fL (81.0-99.0); MONOCYTES # (AUTO) 0.4 10^3/uL (0.0-1.0); MONOCYTES % (AUTO) 5.2 %; NEUTROPHILS % (AUTO) 66.7 %; PLT - PLATELET COUNT 205 10^3/uL (130-450); RED BLOOD COUNT 3.43 10^6/uL (4.20-5.40); RED CELL DISTRIBUTION WIDTH 15.9 % (12.0-15.0); WHITE BLOOD COUNT 7.5 x10^3/uL (4.8-10.8)
[2023-10-10 05:56] LABS: ALBUMIN 3.6 g/dL (3.2-5.5); CALCIUM 8.1 mg/dL (8.5-10.3); CREATININE 0.7 mg/dL (0.6-1.3); MAGNESIUM 1.9 mg/dL (1.7-2.3); PHOSPHORUS 2.7 mg/dL (2.5-5.0); POTASSIUM 3.6 mmol/L (3.5-4.5)
[2023-10-10] MEDS: LEVOTHYROXINE 125 MCG TABLET PO SCH (08:31)
[2023-10-10] MEDS: CHOLECALCIFEROL 25 MCG TABLET PO SCH (08:31)
[2023-10-10] MEDS: ASPIRIN CHEW 81 MG TABLET PO SCH (08:31)
[2023-10-10] MEDS: ENOXAPARIN 40 MG/0.4 ML SYRINGE SUBQ SCH (08:32)
--- NOTE | 2023-10-10 08:40 | PHARMACY PROGRESS NOTE ---
- Best Possible Medication History Admit Date and Time: 10/09/23 1609 Processed by: Nursing As the person ultimately responsible for medication therapy, providers are able to order a medication from an existing home medication list in [facility] via the "Reconcile Routine" prior to Confirmation of that medication by director of operations support. Such practice is discouraged except when the physician, in their clinical judgment, deems that a medical need exists for a medication without regard to previous use.
[2023-10-10] MEDS ORDERED: CHOLECALCIFEROL 25 MCG TABLET PO SCH (09:00)
[2023-10-10] MEDS ORDERED: ENOXAPARIN 40 MG/0.4 ML SYRINGE SUBQ SCH (09:00)
[2023-10-10] MEDS ORDERED: LEVOTHYROXINE 125 MCG TABLET PO SCH (09:00)
[2023-10-10] MEDS ORDERED: ASPIRIN CHEW 81 MG TABLET PO SCH (09:00)
[2023-10-10] MEDS: ACETAMINOPHEN 325 MG TABLET PO PRN (11:49)
--- NOTE | 2023-10-10 14:34 | PROVIDER PROGRESS NOTE ---
Subjective - Prog Note Date Prog Note Date: 10/10/23 Prog Note Time: 14:30 - Subjective Subjective: The patient is definitely more alert and interactive today. She says she is feeling a lot better after receiving fluids overnight. CK level is still eleva alexis. Still with quite a bit of pain in her arm. No family members are at the bedside. She denies fever or shaking chills. No chest pain or heart palpitations. Still with quite a bit of pain in her right arm from her fracture. She finds it difficult to move around in the bed. She has had no nausea vomiting or diarrhea. No urinary complaints Current Medications - Current Medications Current Medications: Active Medications Generic Name Dose Route Start Last Admin Trade Name Freq PRN Reason Stop Dose Admin Acetaminophen 650 mg 10/09/23 18:17 10/10/23 11:49 Acetaminophen 325 Mg Tablet PO 650 mg Q4HR PRN Administration Pain 1 to 4, or Fever Hydrocodone Bitart/Acetaminophen 1 tab 10/09/23 18:22 Hydrocod/Acetam 5/325 Mg Tablet PO Q4HR PRN Pain 5 to 7 Aspirin 81 mg 10/10/23 09:00 10/10/23 08:31 Aspirin Chew 81 Mg Tablet PO 81 mg DAILY ANTOINE Administration Cholecalciferol 50 mcg 10/10/23 09:00 10/10/23 08:31 Cholecalciferol 25 Mcg Tablet PO 50 mcg DAILY ANTOINE Administration Docusate Sodium 100 mg 10/09/23 18:21 Docusate Sodium 100 Mg Capsule PO PRN PRN Constipation Enoxaparin Sodium 40 mg 10/10/23 09:00 10/10/23 08:32 Enoxaparin 40 Mg/0.4 Ml Syringe SUBQ 40 mg DAILY ANTOINE Administration Hydromorphone HCl 0.5 mg 10/09/23 18:22 10/09/23 19:28 Hydromorphone 0.5 Mg/0.5 Ml Syringe IVP 0.5 mg Q6H PRN Administration Pain 8 to 10 Sodium Chloride 1,000 mls @ 75 mls/hr 10/09/23 19:00 10/10/23 08:38 Normal Saline 0.9% IV 10/10/23 21:39 75 mls/hr .[id number] ANTOINE Administration Levothyroxine Sodium 125 mcg 10/11/23 07:00 Levothyroxine 125 Mcg Tablet PO QDAC ANTOINE Ondansetron HCl 4 mg 10/09/23 18:23 Ondansetron Odt 4 Mg Tablet TL Q6HR PRN Nausea / Vomiting Senna 8.6 mg 10/09/23 18:24 Senna 8.6 Mg Tablet PO DAILY PRN Constipation Sodium Chloride 10 ml 10/09/23 17:00 10/10/23 08:32 Sodium Chloride Flush 0.9% 10 Ml Syringe IVP Not Given 0100,0900,1700 ANTOINE Sodium Chloride 10 ml 10/09/23 18:25 10/09/23 19:28 Sodium Chloride Flush 0.9% 10 Ml Syringe IVP 10 ml PRN PRN Administration NEEDED PER PROVIDER ORDERS Levothyroxine [Synthroid] 125 mcg PO DAILY 11/21/15 Cholecalciferol (Vitamin D3) [Vitamin D3] 1 cap PO DAILY 10/07/23 Docusate Sodium 100Mg Capsule [Colace 100Mg Capsule] 1 cap PO PRN PRN 10/07/23 Aspirin Chewable [[place] Aspirin] 81 mg DAILY 10/09/23 Objective - Vital Signs/Intake & Output Reviewed Vital Signs: Yes Vital Signs: Vital Signs x48h Temp Pulse Resp BP Pulse Ox 10/10/23 11:40 36.3 C L 68 17 130/64 94 10/10/23 07:48 36.3 C L 76 17 141/77 H 95 Intake & Output: Intake & Output 10/07/23 10/08/23 10/09/23 10/10/23 23:59 23:59 23:59 23:59 Intake Total 2177.5 912.5 Output Total 375 800 Balance 1802.5 112.5 - Objective General Appearance: positive: No acute distress Eyes Bilateral: positive: Normal inspection ENT: positive: ENT inspection nml Neck: positive: Nml inspection Respiratory: positive: Chest non-tender, No respiratory distress, Breath sounds nml Cardiovascular: positive: Regular rate & rhythm, No murmur, No gallop. negative: Friction rub Abdomen: positive: Non-tender, No organomegaly, Nml bowel sounds Skin: positive: Color nml, No rash, Warm, Dry Extremities: positive: Non-tender, Full ROM Neurologic/Psychiatric: positive: Oriented x3, CN's nml (2-12) - Lab Results Fish Bones: 10/10/23 04:58 10/10/23 04:58 Other Labs: Lab Results x24hrs 10/10/23 10/10/23 Range/Units 04:58 04:58 WBC 7.5 (4.8-10.8) x10^3/uL RBC 3.43 L (4.20-5.40) 10^6/uL Hgb 10.3 L (12.0-16.0) g/dL Hct 32.5 L (37.0-47.0) % MCV 94.8 (81.0-99.0) fL MCH 30.0 (27.0-31.0) pg MCHC 31.7 L (32.0-36.0) g/dL RDW 15.9 H (12.0-15.0) % Plt Count 205 (130-450) 10^3/uL MPV 11.0 H (7.9-10.8) fL Neut # (Auto) 5.0 (1.5-6.6) 10^3/uL Lymph # (Auto) 1.8 (1.5-3.5) 10^3/uL [place] # (Auto) 0.4 (0.0-1.0) 10^3/uL Eos # (Auto) 0.2 (0.0-0.7) 10^3/uL Baso # (Auto) 0.1 (0.0-0.1) 10^3/uL Absolute Nucleated RBC 0.00 x10^3/uL Nucleated RBC % 0.0 /100WBC Sodium 136 (135-145) mmol/L Potassium 3.6 (3.5-4.5) mmol/L Chloride 106 (101-111) mmol/L Carbon Dioxide 24 (21-32) mmol/L Anion Gap 6.0 (6-13) BUN 11 (6-20) mg/dL Creatinine 0.7 (0.6-1.3) mg/dL Estimated GFR (MDRD) 79 L (>89) Glucose 105 H (74-104) mg/dL Calcium 8.1 L (8.5-10.3) mg/dL Phosphorus 2.7 (2.5-5.0) mg/dL Magnesium 1.9 (1.7-2.3) mg/dL Total Creatine Kinase 1975 H* (30-223) IU/L Albumin 3.6 (3.2-5.5) g/dL ABX Reporting Has patient been on IV antibiotics over the past 48 hours?: No Assessment/Plan - Problem List (1) Acute metabolic encephalopathy Impression: Secondary to dehydration and rhabdomyolysis. Improving (2) Rhabdomyolysis Impression: CK level is trending downwards. Will check another 1 in the morning. Continue IV fluids for now Qualifiers: Rhabdomyolysis type: non-traumatic Qualified Code(s): M62.82 - Rhabdomyolysis (3) Proximal humerus fracture Impression: Still with a significant amount of pain. She is adequately controlled on the current pain regimen. She needs to see physical therapy and Occupational Therapy and will need subacute rehabilitation prior to going home. (4) Anemia Impression: Stable (5) Hypothyroid Impression: Continue Synthroid (6) Vitamin D deficiency Impression: Continue supplementation (7) Elevated AST (SGOT) Impression: This will need to be followed up as an outpatient (8) Hypophosphatemia Impression: Repleted and resolved (9) Ambulatory dysfunction Impression: The patient has ambulatory dysfunction at baseline and now has a fractured humerus as well. She will need subacute rehabilitation at discharge. PT and OT have been consulted Disposition: The patient's status will be changed from observation to a full admission as her CK level has not normalized and she needs ongoing parenteral fluids. She will need evaluation from PT and OT and ultimately will need subacute rehabilitation at discharge Time spent: 35 minutes
[2023-10-11] MEDS: LEVOTHYROXINE 125 MCG TABLET PO SCH (06:32)
[2023-10-11 06:37] LABS: BASOPHILS # (AUTO) 0.1 10^3/uL (0.0-0.1); BASOPHILS % (AUTO) 0.8 %; EOSINOPHILS # (AUTO) 0.4 10^3/uL (0.0-0.7); EOSINOPHILS % (AUTO) 4.8 %; HCT - HEMATOCRIT 31.4 % (37.0-47.0); HGB - HEMOGLOBIN 10.4 g/dL (12.0-16.0); LYMPHOCYTES # (AUTO) 2.4 10^3/uL (1.5-3.5); LYMPHOCYTES % (AUTO) 30.8 %; MEAN CORPUSCULAR HEMOGLOBIN 30.9 pg (27.0-31.0); MEAN CORPUSCULAR HGB CONC 33.1 g/dL (32.0-36.0); MEAN CORPUSCULAR VOLUME 93.2 fL (81.0-99.0); MEAN PLATELET VOLUME 10.2 fL (7.9-10.8); MONOCYTES # (AUTO) 0.4 10^3/uL (0.0-1.0); MONOCYTES % (AUTO) 5.2 %; NEUTROPHILS # (AUTO) 4.4 10^3/uL (1.5-6.6); NEUTROPHILS % (AUTO) 57.9 %; PLT - PLATELET COUNT 217 10^3/uL (130-450); RED BLOOD COUNT 3.37 10^6/uL (4.20-5.40); WHITE BLOOD COUNT 7.7 x10^3/uL (4.8-10.8)
[2023-10-11 06:45] LABS: ALBUMIN 3.5 g/dL (3.2-5.5); CALCIUM 8.3 mg/dL (8.5-10.3); CREATININE 0.7 mg/dL (0.6-1.3); MAGNESIUM 1.8 mg/dL (1.7-2.3); PHOSPHORUS 2.5 mg/dL (2.5-5.0); POTASSIUM 3.5 mmol/L (3.5-4.5)
[2023-10-11] MEDS: polyethylene glycoL 3350 17 GM PACKET PO SCH (08:26)
--- NOTE | 2023-10-11 10:16 | PROVIDER PROGRESS NOTE ---
Subjective - Prog Note Date Prog Note Date: 10/11/23 Prog Note Time: 09:15 - Subjective Pt reports feeling: Improved Subjective: Ms. Harrington was admitted to the hospital on 10/08 with rhabdomyolysis. She had a fall with a proximal right humerous fx and dislocation on 10/06 and was sent home from the ED. She was unable to get up at home and remained in bed until her family brought her to the ED on 10/08 where she was dehydrated with rhabdomyolysis and metabolic encephalopathy. She was admitted for rehydration and her CK has been trending down. She remains on IV fluids and is also working on oral hydration. She usually ambulates with a walker at home and is unable to do so with the right humerus fx. Her right arm is in a sling for stabilization. Her pain has been controlled with Tylenol today and she has refused additional pain medication when offered. She will need rehab before she can safely go home. She is oriented to self only, knows she is in a hospital but has not idea which one, the date, or the events that lead to her admission. She has dementia at baseline and family told the RN this is her baseline. She denies fever or shaking chills, shortness of breath, chest pain, heart palpitations, nausea, vomiting, abdominal pain or urinary complaints. She states her arm does not hurt too much unless she moves it. She finds it difficult to move around in the bed. Current Medications - Current Medications Current Medications: Active Medications Generic Name Dose Route Start Last Admin Trade Name Freq PRN Reason Stop Dose Admin Acetaminophen 650 mg 10/09/23 18:17 10/10/23 11:49 Acetaminophen 325 Mg Tablet PO 650 mg Q4HR PRN Administration Pain 1 to 4, or Fever Hydrocodone Bitart/Acetaminophen 1 tab 10/09/23 18:22 Hydrocod/Acetam 5/325 Mg Tablet PO Q4HR PRN Pain 5 to 7 Aspirin 81 mg 10/10/23 09:00 10/11/23 08:26 Aspirin Chew 81 Mg Tablet PO 81 mg DAILY ANTOINE Administration Cholecalciferol 50 mcg 10/10/23 09:00 10/11/23 08:26 Cholecalciferol 25 Mcg Tablet PO 50 mcg DAILY ANTOINE Administration Docusate Sodium 100 mg 10/09/23 18:21 Docusate Sodium 100 Mg Capsule PO PRN PRN Constipation Enoxaparin Sodium 40 mg 10/10/23 09:00 10/11/23 08:27 Enoxaparin 40 Mg/0.4 Ml Syringe SUBQ 40 mg DAILY ANTOINE Administration Hydromorphone HCl 0.5 mg 10/09/23 18:22 10/09/23 19:28 Hydromorphone 0.5 Mg/0.5 Ml Syringe IVP 0.5 mg Q6H PRN Administration Pain 8 to 10 Levothyroxine Sodium 125 mcg 10/11/23 07:00 10/11/23 06:32 Levothyroxine 125 Mcg Tablet PO 125 mcg QDAC ANTOINE Administration Ondansetron HCl 4 mg 10/09/23 18:23 Ondansetron Odt 4 Mg Tablet TL Q6HR PRN Nausea / Vomiting Polyethylene Glycol 17 gm 10/11/23 09:00 10/11/23 08:26 Polyethylene Glycol 3350 17 Gm Packet PO 17 gm DAILY ANTOINE Administration Senna 8.6 mg 10/09/23 18:24 Senna 8.6 Mg Tablet PO DAILY PRN Constipation Sodium Chloride 10 ml 10/09/23 17:00 10/11/23 08:27 Sodium Chloride Flush 0.9% 10 Ml Syringe IVP 10 ml 0100,0900,1700 ANTOINE Administration Sodium Chloride 10 ml 10/09/23 18:25 10/09/23 19:28 Sodium Chloride Flush 0.9% 10 Ml Syringe IVP 10 ml PRN PRN Administration NEEDED PER PROVIDER ORDERS Levothyroxine [Synthroid] 125 mcg PO DAILY 11/21/15 Cholecalciferol (Vitamin D3) [Vitamin D3] 1 cap PO DAILY 10/07/23 Docusate Sodium 100Mg Capsule [Colace 100Mg Capsule] 1 cap PO PRN PRN 10/07/23 Aspirin Chewable [[place] Aspirin] 81 mg DAILY 10/09/23 Objective - Vital Signs/Intake & Output Reviewed Vital Signs: Yes Vital Signs: Vital Signs x48h Temp Pulse Resp BP Pulse Ox 10/11/23 07:27 36.3 C L 72 17 147/82 H 96 10/11/23 06:32 36.4 C L 73 14 150/92 H 96 Intake & Output: Intake & Output 10/08/23 10/09/23 10/10/23 10/11/23 23:59 23:59 23:59 23:59 Intake Total 2177.5 1912.5 680 Output Total 375 1900 600 Balance 1802.5 12.5 80 - Objective General Appearance: positive: No acute distress, Alert Eyes Bilateral: positive: Normal inspection Neck: positive: Nml inspection, No JVD, Trachea midline Respiratory: positive: Chest non-tender, No respiratory distress, Rales (Light rales bilateral bases, likely atelectasis). negative: Wheezes, Rhonchi Cardiovascular: positive: Regular rate & rhythm, No murmur, No gallop, Other (Fixed S2 split, pacemaker left chest). negative: Tachycardia, Bradycardia Peripheral Pulses: 2+ Radial (R), 2+ Radial (L), 2+ Dorsalis pedis (R), 2+ Dorsalis pedis (L) Abdomen: positive: Nml bowel sounds, No distention. negative: Non-tender (Mild LLQ tenderness), Guarding, Rebound, Hepatomegaly, Splenomegaly Back: positive: Nml inspection Skin: positive: Color nml, No rash, Warm, Dry Extremities: positive: Nml appearance (left upper arm and bilateral lower extremities), No pedal edema, Other (Pain right upper arm with sling, distal csm intact) Neurologic/Psychiatric: positive: CN's nml (2-12), Motor nml, Sensation nml, Mood/affect nml, Disoriented to place, Disoriented to time. negative: Oriented x3 (Confused, unable to identify where she lives, what hospital she is in, what month it is, or why she is in the hospital) - Lab Results Fish Bones: 10/11/23 06:11 10/11/23 06:11 Other Labs: Lab Results x24hrs 10/11/23 10/11/23 Range/Units 06:11 06:11 WBC 7.7 (4.8-10.8) x10^3/uL RBC 3.37 L (4.20-5.40) 10^6/uL Hgb 10.4 L (12.0-16.0) g/dL Hct 31.4 L (37.0-47.0) % MCV 93.2 (81.0-99.0) fL MCH 30.9 (27.0-31.0) pg MCHC 33.1 (32.0-36.0) g/dL RDW 16.0 H (12.0-15.0) % Plt Count 217 (130-450) 10^3/uL MPV 10.2 (7.9-10.8) fL Neut # (Auto) 4.4 (1.5-6.6) 10^3/uL Lymph # (Auto) 2.4 (1.5-3.5) 10^3/uL [place] # (Auto) 0.4 (0.0-1.0) 10^3/uL Eos # (Auto) 0.4 (0.0-0.7) 10^3/uL Baso # (Auto) 0.1 (0.0-0.1) 10^3/uL Absolute Nucleated RBC 0.00 x10^3/uL Nucleated RBC % 0.0 /100WBC Sodium 135 (135-145) mmol/L Potassium 3.5 (3.5-4.5) mmol/L Chloride 106 (101-111) mmol/L Carbon Dioxide 24 (21-32) mmol/L Anion Gap 5.0 L (6-13) BUN 10 (6-20) mg/dL Creatinine 0.7 (0.6-1.3) mg/dL Estimated GFR (MDRD) 79 L (>89) Glucose 92 (74-104) mg/dL Calcium 8.3 L (8.5-10.3) mg/dL Phosphorus 2.5 (2.5-5.0) mg/dL Magnesium 1.8 (1.7-2.3) mg/dL Total Creatine Kinase 1309 H* (30-223) IU/L Albumin 3.5 (3.2-5.5) g/dL ABX Reporting Has patient been on IV antibiotics over the past 48 hours?: No Sepsis Event Note (H) - Evaluation Current Stage of Sepsis: Ruled out Assessment/Plan - Problem List (1) Acute metabolic encephalopathy Impression: Secondary to dehydration and rhabdomyolysis. She has been rehydrated and rhabdo is resolving. She is confused at baseline, per family, and is oriented to person only. Continued confusion likely due to dementia and not continued metabolic enc ephalopathy. (2) Rhabdomyolysis Impression: CK level is trending downwards. Today it was 1,309, down from 3,484 on admission. Her GFR has also improved to 79 from 59 at admission. I will continue to monitor CK and kideny function daily and will continue IV fluids. Qualifiers: Rhabdomyolysis type: non-traumatic Qualified Code(s): M62.82 - Rhabdomyolysis (3) Proximal humerus fracture Impression: She has pain with movement or palpation of the right upper humerus. Her arm is currently in a sling. She is adequately controlled on the current pain regimen and has been declining pain medication per the RN. Today she has received only Tylenol at the time of assessment She needs to see physical therapy and Occupational Therapy and will need subacute rehabilitation prior to going home. (4) Anemia Impression: Stable and asymptomatic. Above transfusion threshold, no active sources of bleed ing identified. No treatment needed. Qualifiers: Anemia type: unspecified type Qualified Code(s): D64.9 - Anemia, unspecified (5) Hypothyroid Impression: Continue Synthroid. No additional evaluation or treatment needed. Qualifiers: Hypothyroidism type: unspecified Qualified Code(s): E03.9 - Hypothyroidism, unspecified (6) Vitamin D deficiency Impression: Continue supplementation. I will add calcium as her calcium is 8.3. (7) Elevated AST (SGOT) Impression: This will need to be followed up as an outpatient. (8) Hypophosphatemia Impression: Repleted and resolved. (9) Ambulatory dysfunction Impression: The patient has ambulatory dysfunction at baseline and now has a fractured humerus as well. She will need subacute rehabilitation at discharge. PT and OT have been consulted. She is currently unable to get up with a walker which she also uses at home. I am encouraging nurses to get her up to the chair but this is difficult without the use of her arm and the walker. I have concerns that she will experience deconditioning due to her admission and the lack of PT/OT over the weekend.
[2023-10-11] MEDS: SODIUM CHLORIDE 0.9% 1,000 ML IV SCH (12:35)
[2023-10-12 04:40] LABS: BASOPHILS # (AUTO) 0.1 10^3/uL (0.0-0.1); BASOPHILS % (AUTO) 0.9 %; EOSINOPHILS # (AUTO) 0.4 10^3/uL (0.0-0.7); EOSINOPHILS % (AUTO) 4.9 %; HCT - HEMATOCRIT 30.5 % (37.0-47.0); HGB - HEMOGLOBIN 10.2 g/dL (12.0-16.0); LYMPHOCYTES # (AUTO) 2.7 10^3/uL (1.5-3.5); LYMPHOCYTES % (AUTO) 34.4 %; MEAN CORPUSCULAR HEMOGLOBIN 31.2 pg (27.0-31.0); MEAN CORPUSCULAR HGB CONC 33.4 g/dL (32.0-36.0); MEAN CORPUSCULAR VOLUME 93.3 fL (81.0-99.0); MEAN PLATELET VOLUME 10.3 fL (7.9-10.8); MONOCYTES # (AUTO) 0.4 10^3/uL (0.0-1.0); MONOCYTES % (AUTO) 4.9 %; NEUTROPHILS # (AUTO) 4.2 10^3/uL (1.5-6.6); PLT - PLATELET COUNT 222 10^3/uL (130-450); RED BLOOD COUNT 3.27 10^6/uL (4.20-5.40); RED CELL DISTRIBUTION WIDTH 16.1 % (12.0-15.0); WHITE BLOOD COUNT 7.8 x10^3/uL (4.8-10.8)
[2023-10-12 04:51] LABS: ALBUMIN 3.6 g/dL (3.2-5.5); MAGNESIUM 1.7 mg/dL (1.7-2.3)
[2023-10-12 04:57] LABS: CALCIUM 8.4 mg/dL (8.5-10.3); CREATININE 0.7 mg/dL (0.6-1.3); PHOSPHORUS 2.8 mg/dL (2.5-5.0); POTASSIUM 3.5 mmol/L (3.5-4.5)
[2023-10-12] MEDS: DOCUSATE SODIUM 250 MG CAPSULE PO SCH (08:57)
[2023-10-12] MEDS: SENNA 8.6 MG TABLET PO SCH (08:58)
--- NOTE | 2023-10-12 10:47 | PROVIDER PROGRESS NOTE ---
Subjective - Prog Note Date Prog Note Date: 10/12/23 Prog Note Time: 09:15 - Subjective Pt reports feeling: No change Subjective: Ms. Harrington was admitted to the hospital on 10/08 with rhabdomyolysis. She had a fall with a proximal right humerous fx and dislocation on 10/06 and was sent home from the ED. She was unable to get up at home and remained in bed until her family brought her to the ED on 10/08 where she was dehydrated with rhabdomyolysis and metabolic encephalopathy. She was admitted for rehydration and her CK has been trending down. She remains on IV fluids and is also working on oral hydration. She usually ambulates with a walker at home and is unable to do so with the right humerus fx. Her right arm is in a sling for stabilization. Her pain has been controlled with Tylenol today and she has refused additional pain medication when offered. She will need rehab before she can safely go home. She is oriented to self only, knows she is in a hospital but has not idea which one, the date, or the events that lead to her admission. She has dementia at baseline and family told the RN this is her baseline. She denies fever or shaking chills, shortness of breath, chest pain, heart palpitations, nausea, or vomiting. She has non-specific abdominal pain, unable to assess if dysuria is present due to confusion and difficulty with recall. She states her arm does not hurt too much unless she moves it. She finds it difficult to move around in the bed. She is stable and waiting on rehab placement for discharge. Current Medications - Current Medications Current Medications: Active Medications Generic Name Dose Route Start Last Admin Trade Name Lucía PRN Reason Stop Dose Admin Acetaminophen 650 mg 10/09/23 18:17 10/12/23 08:58 Acetaminophen 325 Mg Tablet PO 650 mg Q4HR PRN Administration Pain 1 to 4, or Fever Hydrocodone Bitart/Acetaminophen 1 tab 10/09/23 18:22 Hydrocod/Acetam 5/325 Mg Tablet PO Q4HR PRN Pain 5 to 7 Aspirin 81 mg 10/10/23 09:00 10/12/23 08:57 Aspirin Chew 81 Mg Tablet PO 81 mg DAILY [facility] Administration Calcium Carbonate/Glycine 500 mg 10/12/23 10:00 Calcium Carbonate Chew 500 Mg Tablet PO BID [facility] Cholecalciferol 50 mcg 10/10/23 09:00 10/12/23 08:58 Cholecalciferol 25 Mcg Tablet PO 50 mcg DAILY [facility] Administration Docusate Sodium 100 mg 10/09/23 18:21 Docusate Sodium 100 Mg Capsule PO PRN PRN Constipation Docusate Sodium 250 - 500 mg 10/12/23 09:00 10/12/23 08:57 Docusate Sodium 250 Mg Capsule PO 500 mg DAILY [facility] Administration Enoxaparin Sodium 40 mg 10/10/23 09:00 10/12/23 08:59 Enoxaparin 40 Mg/0.4 Ml Syringe SUBQ 40 mg DAILY [facility] Administration Hydromorphone HCl 0.5 mg 10/09/23 18:22 10/09/23 19:28 Hydromorphone 0.5 Mg/0.5 Ml Syringe IVP 0.5 mg Q6H PRN Administration Pain 8 to 10 Sodium Chloride 1,000 mls @ 75 mls/hr 10/11/23 13:00 10/12/23 02:05 Normal Saline 0.9% IV 75 mls/hr .[id number] ANTOINE Administration Levothyroxine Sodium 125 mcg 10/11/23 07:00 10/12/23 06:05 Levothyroxine 125 Mcg Tablet PO 125 mcg QDAC ANTOINE Administration Ondansetron HCl 4 mg 10/09/23 18:23 Ondansetron Odt 4 Mg Tablet TL Q6HR PRN Nausea / Vomiting Polyethylene Glycol 17 gm 10/11/23 09:00 10/12/23 08:57 Polyethylene Glycol 3350 17 Gm Packet PO 17 gm DAILY [facility] Administration Senna 8.6 mg 10/09/23 18:24 Senna 8.6 Mg Tablet PO DAILY PRN Constipation Senna 8.6 - 17.2 mg 10/12/23 09:00 10/12/23 08:58 Senna 8.6 Mg Tablet PO 17.2 mg DAILY [facility]TO[facility] Administration Sodium Chloride 10 ml 10/09/23 17:00 10/12/23 08:59 Sodium Chloride Flush 0.9% 10 Ml Syringe IVP 10 ml 0100,0900,1700 ANTOINE Administration Sodium Chloride 10 ml 10/09/23 18:25 10/09/23 19:28 Sodium Chloride Flush 0.9% 10 Ml Syringe IVP 10 ml PRN PRN Administration NEEDED PER PROVIDER ORDERS Levothyroxine [Synthroid] 125 mcg PO DAILY 11/21/15 Cholecalciferol (Vitamin D3) [Vitamin D3] 1 cap PO DAILY 10/07/23 Docusate Sodium 100Mg Capsule [Colace 100Mg Capsule] 1 cap PO PRN PRN 10/07/23 Aspirin Chewable [[facility] Aspirin] 81 mg DAILY 10/09/23 Objective - Vital Signs/Intake & Output Reviewed Vital Signs: Yes Vital Signs: Vital Signs x48h Temp Pulse Resp BP Pulse Ox 10/12/23 08:44 36.6 C 70 18 147/81 H 95 Intake & Output: Intake & Output 10/09/23 10/10/23 10/11/23 10/12/23 23:59 23:59 23:59 23:59 Intake Total 2177.5 1912.5 2131.25 738.75 Output Total 375 1900 750 800 Balance 1802.5 12.5 1381.25 -61.25 - Objective General Appearance: positive: No acute distress, Alert, Other (88 y/o female with overall flat affect, confused at baseline) Eyes Bilateral: positive: Normal inspection Neck: positive: Nml inspection, No JVD, Trachea midline Respiratory: positive: Chest non-tender, No respiratory distress, Rales (Bilateral bases, not taking deep breaths, likely atelectasis) Cardiovascular: positive: Regular rate & rhythm, No gallop, Systolic murmur (Loudest left lower sternal border) Peripheral Pulses: 2+ Radial (R), 2+ Radial (L), 2+ Dorsalis pedis (R), 2+ Dorsalis pedis (L) Abdomen: positive: Nml bowel sounds, Tenderness (Suprapubic and LLQ tenderness). negative: No distention (Mildly distended), Guarding, Rebound, Mass Back: positive: Nml inspection Skin: positive: Color nml, No rash, Warm Extremities: positive: Nml appearance, No pedal edema, Other (Right arm on sling with tenderness proximal humerous and shoulder) Neurologic/Psychiatric: positive: CN's nml (2-12), Motor nml, Sensation nml, Disoriented to place, Disoriented to time. negative: Mood/affect nml (Flat affect, slightly withdrawn) - Lab Results Fish Bones: 10/12/23 03:58 10/12/23 03:58 Other Labs: Lab Results x24hrs 10/12/23 10/12/23 Range/Units 03:58 03:58 WBC 7.8 (4.8-10.8) x10^3/uL RBC 3.27 L (4.20-5.40) 10^6/uL Hgb 10.2 L (12.0-16.0) g/dL Hct 30.5 L (37.0-47.0) % MCV 93.3 (81.0-99.0) fL MCH 31.2 H (27.0-31.0) pg MCHC 33.4 (32.0-36.0) g/dL RDW 16.1 H (12.0-15.0) % Plt Count 222 (130-450) 10^3/uL MPV 10.3 (7.9-10.8) fL Neut # (Auto) 4.2 (1.5-6.6) 10^3/uL Lymph # (Auto) 2.7 (1.5-3.5) 10^3/uL Piatt # (Auto) 0.4 (0.0-1.0) 10^3/uL Eos # (Auto) 0.4 (0.0-0.7) 10^3/uL Baso # (Auto) 0.1 (0.0-0.1) 10^3/uL Absolute Nucleated RBC 0.00 x10^3/uL Nucleated RBC % 0.0 /100WBC Sodium 137 (135-145) mmol/L Potassium 3.5 (3.5-4.5) mmol/L Chloride 107 (101-111) mmol/L Carbon Dioxide 23 (21-32) mmol/L Anion Gap 7.0 (6-13) BUN 13 (6-20) mg/dL Creatinine 0.7 (0.6-1.3) mg/dL Estimated GFR (MDRD) 79 L (>89) Glucose 100 (74-104) mg/dL Calcium 8.4 L (8.5-10.3) mg/dL Phosphorus 2.8 (2.5-5.0) mg/dL Magnesium 1.7 (1.7-2.3) mg/dL Total Creatine Kinase 882 H (30-223) IU/L Albumin 3.6 (3.2-5.5) g/dL ABX Reporting Has patient been on IV antibiotics over the past 48 hours?: No Sepsis Event Note (H) - Evaluation Current Stage of Sepsis: Ruled out Assessment/Plan - Problem List (1) Acute metabolic encephalopathy Impression: Secondary to dehydration and rhabdomyolysis. She has been rehydrated and rhabdo is resolving. She is confused at baseline, per family, and is oriented to person only. Continued confusion likely due to dementia and not continued metabolic encephalopathy. Today, she appeared a little more confused and was unsure of what to do with her breakfast. (2) Rhabdomyolysis Impression: Qualifiers: Rhabdomyolysis type: non-traumatic Qualified Code(s): M62.82 - Rhabdomyolysis (3) Proximal humerus fracture Impression: (4) Anemia Impression: Qualifiers: Anemia type: unspecified type Qualified Code(s): D64.9 - Anemia, unspecified (5) Hypothyroid Impression: Qualifiers: Hypothyroidism type: unspecified Qualified Code(s): E03.9 - Hypothyroidism, unspecified (6) Vitamin D deficiency Impression: (7) Elevated AST (SGOT) Impression: (8) Hypophosphatemia Impression: (9) Ambulatory dysfunction Impression: (2) Rhabdomyolysis Impression: CK level is trending downwards. Today it was 882, down from 3,484 on admission. Her GFR has also improved to 79 from 59 at admission. I will continue to monitor CK and kidney function. She is stable for discharge and will be switched to PO fluids. Qualifiers: Rhabdomyolysis type: non-traumatic Qualified Code(s): M62.82 - Rhabdomyolysis (3) Abdominal pain Impression: She has mild abdominal distension and tenderness to palpation suprapubic and LLQ. She had mild discomfort yesterday but it has increased today. Unable to assess for dyruria due to confusion and poor recall. I have ordered a UA and bladder scan t r/o UTI and urinary retention. She is having regular BMs so concern for intestinal obstruction is low. Her WBCs are normal without any fever or chills or diarrhea making colitis less likely. (4) Proximal humerus fracture Impression: She has pain with movement or palpation of the right upper humerus. Her arm is currently in a sling. She is adequately controlled on the current pain regimen and has been declining pain medication per the RN. She needs to see physical therapy and Occupational Therapy and will need subacute rehabilitation prior to going home. (5) Anemia Impression: Stable and asymptomatic. Above transfusion threshold, no active sources of bleeding identified. No treatment needed. Qualifiers: Anemia type: unspecified type Qualified Code(s): D64.9 - Anemia, unspecified (6) Hypothyroid Impression: Continue Synthroid. No additional evaluation or treatment needed. Qualifiers: Hypothyroidism type: unspecified Qualified Code(s): E03.9 - Hypothyroidism, unspecified (7) Vitamin D deficiency Impression: Continue supplementation with Vit D and Calcium. (8) Elevated AST (SGOT) Impression: This will need to be followed up as an outpatient. (9) Hypophosphatemia Impression: Repleted and resolved. (10) Ambulatory dysfunction Impression: The patient has ambulatory dysfunction at baseline and now has a fractured humerus as well. She will need subacute rehabilitation at discharge. PT and OT have been consulted. She is currently unable to get up with a walker which she also uses at home. I am encouraging nurses to get her up to the chair but this is difficult without the use of her arm and the walker. I have concerns that she will experience deconditioning due to her lack of mobility. She had difficulty eating with her left hand this morning and will need both PT and OT.
[2023-10-12] MEDS: HYDROcod/ACETAM 5/325 MG TABLET PO PRN (11:24)
[2023-10-12] MEDS: CALCIUM CARBONATE CHEW 500 MG TABLET PO SCH (11:27)
[2023-10-12 13:21] LABS: BILIRUBIN,URINE NEGATIVE (NEGATIVE); GLUCOSE, URINE (UA) NEGATIVE (NEGATIVE); KETONES,URINE (UA) NEGATIVE (NEGATIVE); LEUKOCYTE ESTERASE, URINE NEGATIVE (NEGATIVE); NITRITE,URINE NEGATIVE (NEGATIVE); OCCULT BLOOD,URINE NEGATIVE (NEGATIVE); PH,URINE 6.5 PH (5.0-7.5); PROTEIN,URINE NEGATIVE (NEGATIVE); UROBILINOGEN,URINE 0.2 (NORMAL) E.U./dL (NORMAL)
[2023-10-12 13:23] LABS: CLARITY,URINE CLEAR (CLEAR)
[2023-10-12 13:35] LABS: BACTERIA,URINE Moderate /HPF (None Seen); RBC,URINE 0-5 /HPF (0-5); SQUAMOUS EPITHELIAL CELL,UR NONE SEEN (<= Few); WBC,URINE 0-3 /HPF (0-5)
[2023-10-13 06:00] LABS: ALBUMIN 3.4 g/dL (3.2-5.5); CALCIUM 8.4 mg/dL (8.5-10.3); CREATININE 0.6 mg/dL (0.6-1.3); MAGNESIUM 1.7 mg/dL (1.7-2.3); PHOSPHORUS 3.1 mg/dL (2.5-5.0); POTASSIUM 3.8 mmol/L (3.5-4.5)
[2023-10-13] MEDS: TAMSULOSIN 0.4 MG CAPSULE PO SCH (09:17)
--- NOTE | 2023-10-13 14:10 | PROVIDER PROGRESS NOTE ---
Subjective - Prog Note Date Prog Note Date: 10/13/23 Prog Note Time: 13:55 - Subjective Pt reports feeling: No change Subjective: The patient has stabilized. She is waiting placement for subacute rehabilitation. She feels well this morning. She is alert and oriented and answers questions fairly appropriately. He can tell she has some spells of confusion. She continues to have some pain in her right arm. Otherwise no fever or chills. No chest pain or heart palpitations. No nausea vomiting or diarrhea. No urinary complaints. Current Medications - Current Medications Current Medications: Active Medications Generic Name Dose Route Start Last Admin Trade Name Freq PRN Reason Stop Dose Admin Acetaminophen 650 mg 10/09/23 18:17 10/13/23 06:25 Acetaminophen 325 Mg Tablet PO 650 mg Q4HR PRN Administration Pain 1 to 4, or Fever Hydrocodone Bitart/Acetaminophen 1 tab 10/09/23 18:22 10/13/23 11:10 Hydrocod/Acetam 5/325 Mg Tablet PO 1 tab Q4HR PRN Administration Pain 5 to 7 Aspirin 81 mg 10/10/23 09:00 10/13/23 09:17 Aspirin Chew 81 Mg Tablet PO 81 mg DAILY [facility] Administration Calcium Carbonate/Glycine 500 mg 10/12/23 10:00 10/13/23 09:17 Calcium Carbonate Chew 500 Mg Tablet PO 500 mg BID [facility] Administration Cholecalciferol 50 mcg 10/10/23 09:00 10/13/23 09:17 Cholecalciferol 25 Mcg Tablet PO 50 mcg DAILY [facility] Administration Docusate Sodium 100 mg 10/09/23 18:21 Docusate Sodium 100 Mg Capsule PO PRN PRN Constipation Docusate Sodium 250 - 500 mg 10/12/23 09:00 10/13/23 09:17 Docusate Sodium 250 Mg Capsule PO 500 mg DAILY [facility] Administration Enoxaparin Sodium 40 mg 10/10/23 09:00 10/13/23 09:16 Enoxaparin 40 Mg/0.4 Ml Syringe SUBQ 40 mg DAILY [facility] Administration Hydromorphone HCl 0.5 mg 10/09/23 18:22 10/09/23 19:28 Hydromorphone 0.5 Mg/0.5 Ml Syringe IVP 0.5 mg Q6H PRN Administration Pain 8 to 10 Sodium Chloride 1,000 mls @ 75 mls/hr 10/11/23 13:00 10/13/23 04:32 Normal Saline 0.9% IV 75 mls/hr .[id number] ANTOINE Administration Levothyroxine Sodium 125 mcg 10/11/23 07:00 10/13/23 06:23 Levothyroxine 125 Mcg Tablet PO 125 mcg QDAC [facility] Administration Ondansetron HCl 4 mg 10/09/23 18:23 Ondansetron Odt 4 Mg Tablet TL Q6HR PRN Nausea / Vomiting Polyethylene Glycol 17 gm 10/11/23 09:00 10/13/23 09:16 Polyethylene Glycol 3350 17 Gm Packet PO 17 gm DAILY [facility] Administration Senna 8.6 mg 10/09/23 18:24 Senna 8.6 Mg Tablet PO DAILY PRN Constipation Senna 8.6 - 17.2 mg 10/12/23 09:00 10/13/23 09:17 Senna 8.6 Mg Tablet PO 17.2 mg DAILY [facility] Administration Sodium Chloride 10 ml 10/09/23 17:00 10/13/23 09:17 Sodium Chloride Flush 0.9% 10 Ml Syringe IVP 10 ml 0100,0900,1700 ANTOINE Administration Sodium Chloride 10 ml 10/09/23 18:25 10/09/23 19:28 Sodium Chloride Flush 0.9% 10 Ml Syringe IVP 10 ml PRN PRN Administration NEEDED PER PROVIDER ORDERS Tamsulosin HCl 0.4 mg 10/13/23 09:00 10/13/23 09:17 Tamsulosin 0.4 Mg Capsule PO 0.4 mg DAILY [facility] Administration Levothyroxine [Synthroid] 125 mcg PO DAILY 11/21/15 Cholecalciferol (Vitamin D3) [Vitamin D3] 1 cap PO DAILY 10/07/23 Docusate Sodium 100Mg Capsule [Colace 100Mg Capsule] 1 cap PO PRN PRN 10/07/23 Aspirin Chewable [[facility] Aspirin] 81 mg DAILY 10/09/23 Objective - Vital Signs/Intake & Output Reviewed Vital Signs: Yes Vital Signs: Vital Signs x48h Temp Pulse Resp BP Pulse Ox 10/13/23 07:38 36.3 C L 75 18 145/74 H 96 Intake & Output: Intake & Output 10/10/23 10/11/23 10/12/23 10/13/23 23:59 23:59 23:59 23:59 Intake Total 1912.5 2131.25 2716.25 1333.75 Output Total 8517 790 6848 2225 Balance 12.5 1381.25 -383.75 -891.25 - Objective General Appearance: positive: No acute distress Eyes Bilateral: positive: Normal inspection ENT: positive: ENT inspection nml Neck: positive: Nml inspection Respiratory: positive: Chest non-tender, No respiratory distress, Breath sounds nml Cardiovascular: positive: Regular rate & rhythm, No murmur, No gallop. negative: Friction rub Abdomen: positive: Non-tender, No organomegaly, Nml bowel sounds Skin: positive: Color nml, No rash, Warm, Dry Extremities: positive: Non-tender, Full ROM Neurologic/Psychiatric: positive: Oriented x3, CN's nml (2-12) - Lab Results Fish Bones: 10/12/23 03:58 10/13/23 05:11 Other Labs: Lab Results x24hrs 10/13/23 Range/Units 05:11 Sodium 136 (135-145) mmol/L Potassium 3.8 (3.5-4.5) mmol/L Chloride 105 (101-111) mmol/L Carbon Dioxide 24 (21-32) mmol/L Anion Gap 7.0 (6-13) BUN 12 (6-20) mg/dL Creatinine 0.6 (0.6-1.3) mg/dL Estimated GFR (MDRD) 95 (>89) Glucose 90 (74-104) mg/dL Calcium 8.4 L (8.5-10.3) mg/dL Phosphorus 3.1 (2.5-5.0) mg/dL Magnesium 1.7 (1.7-2.3) mg/dL Albumin 3.4 (3.2-5.5) g/dL Sepsis Event Note (H) - Evaluation Current Stage of Sepsis: Ruled out Assessment/Plan - Problem List (1) Acute metabolic encephalopathy Impression: She is more clear today than she was yesterday. She is alert and oriented but clearly gets a little bit confused. Overall improved. I believe she has back to her cognitive baseline (2) Rhabdomyolysis Impression: Improved. Will stop IV fluids today Qualifiers: Rhabdomyolysis type: non-traumatic Qualified Code(s): M62.82 - Rhabdomyolysis (3) Proximal humerus fracture Impression: Continue to work with physical therapy and Occupational Therapy. Her pain is adequately controlled (4) Anemia Impression: Stable Qualifiers: Anemia type: unspecified type Qualified Code(s): D64.9 - Anemia, unspecified (5) Hypothyroid Impression: Continue synthroid Qualifiers: Hypothyroidism type: unspecified Qualified Code(s): E03.9 - Hypothyroidism, unspecified (6) Vitamin D deficiency Impression: Continue home regimen (7) Elevated AST (SGOT) Impression: This can be followed as an outpatient (8) Hypophosphatemia Impression: Repleted and resolved (9) Ambulatory dysfunction Impression: She will continue to work with physical therapy and Occupational Therapy. She is going to go to subacute rehabilitation tomorrow Disposition: Inpatient hospitalization remains necessary for disposition. The patient is stable for transfer to a skilled facility. It is my understanding she has a bed available tomorrow Time spent: 35 minutes
[2023-10-13] MEDS: SENNA 8.6 MG TABLET PO PRN (14:36)
[2023-10-14 06:35] LABS: ALBUMIN 3.4 g/dL (3.2-5.5); MAGNESIUM 1.7 mg/dL (1.7-2.3)
[2023-10-14 06:41] LABS: CALCIUM 8.8 mg/dL (8.5-10.3); CREATININE 0.7 mg/dL (0.6-1.3); PHOSPHORUS 3.6 mg/dL (2.5-5.0); POTASSIUM 4.1 mmol/L (3.5-4.5)
--- NOTE | 2023-10-14 09:17 | PROVIDER PROGRESS NOTE ---
Subjective - Prog Note Date Prog Note Date: 10/14/23 Prog Note Time: 09:15 - Subjective Pt reports feeling: No change Subjective: The patient is awake and alert this morning. May be a little more confused than she was yesterday. She told me she did not understand what was going on. Once I sat down and explained everything to her she was much better. She is currently awaiting placement for subacute rehabilitation. She may have a bed available today if not it will be tomorrow. She is pleasantly confused. A good review of systems could not be obtained Current Medications - Current Medications Current Medications: Active Medications Generic Name Dose Route Start Last Admin Trade Name Freq PRN Reason Stop Dose Admin Acetaminophen 650 mg 10/09/23 18:17 10/14/23 09:02 Acetaminophen 325 Mg Tablet PO 650 mg Q4HR PRN Administration Pain 1 to 4, or Fever Hydrocodone Bitart/Acetaminophen 1 tab 10/09/23 18:22 10/13/23 11:10 Hydrocod/Acetam 5/325 Mg Tablet PO 1 tab Q4HR PRN Administration Pain 5 to 7 Aspirin 81 mg 10/10/23 09:00 10/14/23 08:50 Aspirin Chew 81 Mg Tablet PO 81 mg DAILY [facility] Administration Calcium Carbonate/Glycine 500 mg 10/12/23 10:00 10/14/23 08:50 Calcium Carbonate Chew 500 Mg Tablet PO 500 mg BID ANTOINE Administration Cholecalciferol 50 mcg 10/10/23 09:00 10/14/23 08:50 Cholecalciferol 25 Mcg Tablet PO 50 mcg DAILY [facility] Administration Docusate Sodium 100 mg 10/09/23 18:21 Docusate Sodium 100 Mg Capsule PO PRN PRN Constipation Docusate Sodium 250 - 500 mg 10/12/23 09:00 10/14/23 08:50 Docusate Sodium 250 Mg Capsule PO 500 mg DAILY [facility] Administration Enoxaparin Sodium 40 mg 10/10/23 09:00 10/14/23 08:49 Enoxaparin 40 Mg/0.4 Ml Syringe SUBQ 40 mg DAILY [facility] Administration Hydromorphone HCl 0.5 mg 10/09/23 18:22 10/09/23 19:28 Hydromorphone 0.5 Mg/0.5 Ml Syringe IVP 0.5 mg Q6H PRN Administration Pain 8 to 10 Levothyroxine Sodium 125 mcg 10/11/23 07:00 10/14/23 06:15 Levothyroxine 125 Mcg Tablet PO 125 mcg QDAC ANTOINE Administration Ondansetron HCl 4 mg 10/09/23 18:23 Ondansetron Odt 4 Mg Tablet TL Q6HR PRN Nausea / Vomiting Polyethylene Glycol 17 gm 10/11/23 09:00 10/14/23 08:49 Polyethylene Glycol 3350 17 Gm Packet PO 17 gm DAILY [facility] Administration Senna 8.6 mg 10/09/23 18:24 10/13/23 14:36 Senna 8.6 Mg Tablet PO 8.6 mg DAILY PRN Administration Constipation Senna 8.6 - 17.2 mg 10/12/23 09:00 10/14/23 08:50 Senna 8.6 Mg Tablet PO 17.2 mg DAILY ANTOINE Administration Sodium Chloride 10 ml 10/09/23 17:00 10/14/23 08:49 Sodium Chloride Flush 0.9% 10 Ml Syringe IVP 10 ml 0100,0900,1700 ANTOINE Administration Sodium Chloride 10 ml 10/09/23 18:25 10/09/23 19:28 Sodium Chloride Flush 0.9% 10 Ml Syringe IVP 10 ml PRN PRN Administration NEEDED PER PROVIDER ORDERS Tamsulosin HCl 0.4 mg 10/13/23 09:00 10/14/23 08:50 Tamsulosin 0.4 Mg Capsule PO 0.4 mg DAILY [facility]TO[facility] Administration Levothyroxine [Synthroid] 125 mcg PO DAILY 11/21/15 Cholecalciferol (Vitamin D3) [Vitamin D3] 1 cap PO DAILY 10/07/23 Docusate Sodium 100Mg Capsule [Colace 100Mg Capsule] 1 cap PO PRN PRN 10/07/23 Aspirin Chewable [[facility] Aspirin] 81 mg DAILY 10/09/23 Objective - Vital Signs/Intake & Output Reviewed Vital Signs: Yes Vital Signs: Vital Signs x48h Temp Pulse Resp BP Pulse Ox 10/14/23 07:35 36.5 C 83 18 135/66 H 94 10/14/23 06:15 36.4 C L 83 16 137/64 H 95 Intake & Output: Intake & Output 10/11/23 10/12/23 10/13/23 10/14/23 23:59 23:59 23:59 23:59 Intake Total 2131.25 2716.25 2476.75 360 Output Total 750 3100 2425 400 Balance 1381.25 -383.75 51.75 -40 - Objective General Appearance: positive: No acute distress Eyes Bilateral: positive: Normal inspection ENT: positive: ENT inspection nml Neck: positive: Nml inspection Respiratory: positive: Chest non-tender, No respiratory distress, Breath sounds nml Cardiovascular: positive: Regular rate & rhythm, No murmur, No gallop. negative: Friction rub Abdomen: positive: Non-tender, No organomegaly, Nml bowel sounds Skin: positive: Color nml, No rash, Warm, Dry Extremities: positive: Non-tender, Full ROM Neurologic/Psychiatric: positive: Oriented x3, CN's nml (2-12) - Lab Results Fish Bones: 10/12/23 03:58 10/14/23 06:10 Other Labs: Lab Results x24hrs 10/14/23 10/13/23 Range/Units 06:10 18:30 Sodium 136 (135-145) mmol/L Potassium 4.1 (3.5-4.5) mmol/L Chloride 106 (101-111) mmol/L Carbon Dioxide 25 (21-32) mmol/L Anion Gap 5.0 L (6-13) BUN 14 (6-20) mg/dL Creatinine 0.7 (0.6-1.3) mg/dL Estimated GFR (MDRD) 79 L (>89) Glucose 91 (74-104) mg/dL Calcium 8.8 (8.5-10.3) mg/dL Phosphorus 3.6 (2.5-5.0) mg/dL Magnesium 1.7 (1.7-2.3) mg/dL Albumin 3.4 (3.2-5.5) g/dL SARS-CoV-2 (PCR) NOT DETECTED Sepsis Event Note (H) - Evaluation Current Stage of Sepsis: Ruled out Assessment/Plan - Problem List (1) Acute metabolic encephalopathy Impression: The patient's acute metabolic encephalopathy that was present at the time of admission has resolved. She does have some baseline issues with cognition normally. I think it is a little off here in the hospital. She has waxing and waning mental status. However acute encephalopathy [place] where she was largely lethargic has resolved (2) Rhabdomyolysis Qualifiers: Rhabdomyolysis type: non-traumatic Qualified Code(s): M62.82 - Rhabdomyolysis (3) Proximal humerus fracture Impression: Supportive care. She should wear a sling. She will continue to work with physical therapy and Occupational Therapy (4) Anemia Impression: Stable Qualifiers: Anemia type: unspecified type Qualified Code(s): D64.9 - Anemia, unspecified (5) Hypothyroid Impression: Continue home dose of Synthroid Qualifiers: Hypothyroidism type: unspecified Qualified Code(s): E03.9 - Hypothyroidism, unspecified (6) Vitamin D deficiency Impression: Continue supplementation (7) Elevated AST (SGOT) Impression: Of undetermined significance at this point. Workup can be performed as an outpatient when she gets out of the hospital (8) Hypophosphatemia Impression: Repleted (9) Ambulatory dysfunction Impression: The patient will be pursuing subacute rehabilitation at discharge. Continue to work with physical therapy and Occupational Therapy during this hospitalization. She has been accepted to rehab pending insurance authorization. She likely will go this afternoon or tomorrow Disposition: Inpatient hospitalization remains necessary for disposition. Discharge planning is working on placement and hopefully she can go later on today or tomorrow morning. She is stable for transfer whenever a bed is found Time spent: 35 minutes
--- NOTE | 2023-10-15 09:26 | Discharge Plan ---
"Discharge Plan for SNF / SENIOR LIVING - Discharge Plan And Transition Orders Problem Reviewed?: Yes Disposition: 03 SNF DC/Xfer Condition: Fair Allergies and Adverse Reactions: Allergies Allergy/AdvReac Type Severity Reaction Status Date / Time aspirin Allergy Emesis Verified 10/09/23 09:45 Assessment: The patient was seen on the day of discharge and is stable. Heart is regular lungs are clear. - SNF / SENIOR LIVING Transition Orders Admit to (Facility): [facility] Discharge Diagnosis: 1. Acute metabolic encephalopathy This was present at the time of admission. She was initially quite lethargic and somnolent. She does have baseline issues with cognition. She was dehydrated with rhabdomyolysis at the time of admission. After hydration her mentation improved and she is back to her cognitive baseline 2. Rhabdomyolysis The patient had gone home from the emergency room and gone to bed and could not get up for about 30+ hours. She had mild rhabdomyolysis at the time of admission that improved with IV fluid hydration 3. Pathologic proximal humerus fracture This was due to a ground-level fall. Supportive care. She should wear a sling. She will continue to work with physical therapy and Occupational Therapy at the facility 4. Anemia of chronic disease Stable 5. Hypothyroidism She will resume her home dose of Synthroid 6. Vitamin D deficiency Continue supplementation 7. Elevated liver function test Of undetermined significance at this point. Workup can be performed as an outpatient when she gets out of rehab 8. Hypophosphatemia Repleted and resolved 9. Ambulatory dysfunction She will be discharged to subacute rehabilitation today. Medicare Certification Statement: I certify that [facility] care is medically necessary on a continuing basis for any of the conditions for which she/he is receiving care during hospitalization. Notify PCP of admission and forward orders to primary provider for signature. Weight on admission and: Weekly Other Notification Orders: Call PCP immediately if patient develops dyspnea, chest pain/tightness or edema. House Bowel Program: Yes Additional Bowel Program Orders: If no BM after 2 days, nurse may give M.O.M. 30ml PO PRN and/or ducolax Supp 1 OR and/or DAVID 250mg P.O., and/or senna 1-2 tabs PO. On day 3 nurse may give repeat above order until residents constipation is resolved. Annual Influenza Vaccine (between Oct 24 and May 23): Yes Two-step PPD per [facility] [id number] or approved exception documents: Yes Medication Orders: PLEASE REFER TO THE DISCHARGE MEDICATION LIST. - Medications New Prescriptions: HYDROcod/ACETAM 5/325 [[place] 5/325] 1 tab PO Q4HR PRN #18 tab PRN Reason: Pain 5 to 7 - Therapies | Activity Therapy: Evaluation | Treat if indicated: PT, OT Rehabilitation Potential: Maximize functional status Activity: Activity as Tolerated Weight Bearing: Nonweightbearing with rig Follow Up: The patient should follow-up with the staff MD in 1 week. She should follow-up with her primary care physician when she gets out of rehab"
--- NOTE | 2023-10-15 09:32 | DISCHARGE SUMMARY ---
Discharge Summary Admit Date: 10/09/23 Discharge Date: 10/15/23 Discharging Provider: Shelley Shen PA-C Primary Care Provider: Dr Emanuel Jorge Code Status: Attempt Resuscitation Condition at Discharge: Fair Discharge Disposition: 03 [facility] DC/Xfer - DIAGNOSES Discharge Diagnoses with Status of Each Condition: 1. Acute metabolic encephalopathy This was present at the time of admission. She was initially quite lethargic and somnolent. She does have baseline issues with cognition. She was dehydrated with rhabdomyolysis at the time of admission. After hydration her mentation improved and she is back to her cognitive baseline 2. Rhabdomyolysis The patient had gone home from the emergency room and gone to bed and could not get up for about 30+ hours. She had mild rhabdomyolysis at the time of admission that improved with IV fluid hydration 3. Pathologic proximal humerus fracture This was due to a ground-level fall. Supportive care. She should wear a sling. She will continue to work with physical therapy and Occupational Therapy at the facility 4. Anemia of chronic disease Stable 5. Hypothyroidism She will resume her home dose of Synthroid 6. Vitamin D deficiency Continue supplementation 7. Elevated liver function test Of undetermined significance at this point. Workup can be performed as an outpatient when she gets out of rehab 8. Hypophosphatemia Repleted and resolved 9. Ambulatory dysfunction She will be discharged to subacute rehabilitation today. - HPI History of Present Illness: The patient is an 88-year-old female with a past medical history sign ificant for complete heart block. She is status post pacemaker placement. She has a remote history of ischemic cardiomyopathy. However the daughter states that she was recently seen by her fertilizer mixer and has no heart failure. The patient has hypothyroidism and a history of mild dementia. For the past several months she has had increasing ambulatory dysfunction The patient was seen in the emergency room on 10/06/2013. She had had a fall at home and had a right fracture dislocation of her right shoulder. This was reduced under conscious sedation and the patient was sent home. The patient laid down at home and was unable to get up. She was in bed for just over 24 hours. This morning the patient's daughter noticed that she was altered past her baseline she still was unable to get out of bed so she was brought to the emergency room for further evaluation. In the emergency room she had a chemistry panel which was normal. Phosphorus level was somewhat low at 2.2. She had a mildly elevated AST but otherwise her liver panel was normal. CK level was elevated at 3484. CBC revealed white blood cell count of 7.9, hemoglobin of 10.4 and a platelet level of 211. She had a CT scan of the brain which revealed some volume loss and small vessel ischemic changes. She had a CT scan of the cervical spine which revealed some cervical spondylosis but nothing acute. Her right shoulder was x-rayed which revealed a displaced fracture of the proximal right humerus. By the time I saw her the patient's mental status has improved. The patient's daughter who is at the bedside states that after she received IV fluids in the emergency room her mentation is now back to its baseline. The patient is awake alert and oriented x 3 although clearly gets a little confused regarding her s ituation. She denies fever or chills. No chest pain or heart palpitations. She says she has pain in her right shoulder. She also has had some some pain in her lower back. She has had no nausea vomiting or diarrhea. No urinary complaints. She complains of persistent dizziness. She also says she feels profoundly weak. The patient's surrogate decision maker is her daughter Jyotsna Harrington [phone]. She is her healthcare power of corporate attorney along with her brother Jose Harrington. We did discuss her CODE STATUS and a POLST form was filled out. They have really never given much thought to her CODE STATUS before and for now would like for her to be a full code. She is going to discuss further with her brother and we are going to have another discussion about this prior to discharge. - HOSPITAL COURSE Hospital Course: The patient was admitted to the hospital. She was found to have rhabdomyolysis and was quite dehydrated. Her mentation improved with IV fluid hydration. Her CK level trended downwards. The patient is now back to her cognitive baseline however she does have some mild cognitive deficits at baseline and has some waxing and waning mental status changes. She has worked with physical therapy and Occupational Therapy. The family has opted to pursue subacute rehabilitation at discharge. She will be discharged to a facility today in stable condition. - ALLERGIES Allergies/Adverse Reactions: Allergies Allergy/AdvReac Type Severity Reaction Status Date / Time aspirin Allergy Emesis Verified 10/09/23 09:45 - MEDICATIONS Home Medications: Ambulatory Orders Medication Instructions Recorded Confirmed Levothyroxine [Synthroid] 125 mcg PO DAILY 11/21/15 10/09/23 Cholecalciferol (Vitamin D3) 1 cap PO DAILY 10/07/23 10/09/23 [Vitamin D3] Docusate Sodium 100Mg Capsule 1 cap PO PRN PRN 10/07/23 10/09/23 [Colace 100Mg Capsule] Aspirin Chewable [[place] 81 mg DAILY 10/09/23 10/09/23 Aspirin] Calcium Carbonate [Tums (Calcium 500 mg PO BID tab 10/15/23 Carbonate 500mg)] HYDROcod/ACETAM 5/325 [[place] 5/325] 1 tab PO Q4HR PRN #18 tab 10/15/23 Senna [Senokot] 8.6 - 17.2 mg PO DAILY tab 10/15/23 Tamsulosin [Flomax] 0.4 mg PO DAILY cap 10/15/23 polyethylene glycoL 3350 [Miralax] 17 gm PO DAILY packet 10/15/23 - PHYSICAL EXAM AT DISCHARGE General Appearance: positive: No acute distress ENT: positive: ENT inspection nml Neck: positive: Nml inspection Respiratory: positive: Chest non-tender, No respiratory distress, Breath sounds nml Cardiovascular: positive: Regular rate & rhythm, No murmur, No gallop. negative: Friction rub Abdomen: positive: Non-tender, No organomegaly, Nml bowel sounds Skin: positive: Color nml, No rash, Warm, Dry Extremities: positive: Non-tender, Full ROM Neurologic/Psychiatric: positive: Oriented x3, CN's nml (2-12) - LABS Result Diagrams: 10/12/23 03:58 10/14/23 06:10 - SEPSIS Current Stage of Sepsis: Ruled out - FOLLOW UP Follow Up: The patient will follow-up with the staff MD in 1 week. Primary care physician when she is released from rehab - TIME SPENT Time Spent in Discharge (Minutes): 45
[2023-10-15 10:23] VITALS: O2SAT 93
[2023-10-15 10:35] VITALS: BP 121/68
== END 2023-10-15 10:36 | DRG 557 ==
LOC: ED 09:23 → MERGE 09:23 → MS2 16:09 → OBSVTOIN 10-10 12:33
PROVIDERS: ADMIT Physician Assistant; ATTEND Physician Assistant
DX: M62.82 Rhabdomyolysis (principal); G93.41 Metabolic encephalopathy; I44.2 Atrioventricular block, complete; S42.251D Displaced fracture of greater tuberosity of right humerus, subsequent encounter for fracture with routine healing; I42.8 Other cardiomyopathies; D63.8 Anemia in other chronic diseases classified elsewhere; E03.9 Hypothyroidism, unspecified; D64.9 Anemia, unspecified; E55.9 Vitamin D deficiency, unspecified; R79.89 Other specified abnormal findings of blood chemistry; F03.90 Unspecified dementia, unspecified severity, without behavioral disturbance, psychotic disturbance, mood disturbance, and anxiety; E86.0 Dehydration; E78.00 Pure hypercholesterolemia, unspecified; R74.01 Elevation of levels of liver transaminase levels; M84.621 Pathological fracture in other disease, right humerus; M85.811 Other specified disorders of bone density and structure, right shoulder; M25.511 Pain in right shoulder; R33.9 Retention of urine, unspecified; R53.1 Weakness; R41.0 Disorientation, unspecified; W19.XXXD Unspecified fall, subsequent encounter; Z74.01 Bed confinement status; Z95.0 Presence of cardiac pacemaker
CPT/HCPCS: 36415; 70450; 72125; 73030; 80053; 80069; 81001; 81003; 82550; 83735; 84100; 85025; 87635; 96374; 97162; 97166; 97530; 99284; 99285; A9270; G0378; J1170; J1650; 87086